=== PATIENT | male | born 1955 | race Caucasian/White ===

== ENCOUNTER 2025-02-08 16:31 | Inpatient (IN) ==
[2025-02-08] MEDS: SODIUM CHLORIDE 0.9% 1,000 ML IV ONE ×2 (16:58→18:16)
[2025-02-08 17:04] LABS: Hematocrit (blood only) 43.4 % (42.0-52.0); Hemoglobin 15.0 g/dl (14.0-18.0); Immature Granulocytes # (auto) 0.03 K/uL (0.01-0.20); Immature Granulocytes % (auto) 0.3 %; Mean Corpuscular Hemoglobin 27.9 pg (25.0-34.0); Mean Corpuscular Volume 80.8 fL (80.0-100.0); Platelet Count 179 K/uL (130-400); RDW Standard Deviation 41.8 fL (36.4-46.3); Red Blood Count 5.37 M/uL (4.70-6.10); White Blood Count 9.27 K/ul (4.8-10.8)
--- NOTE | 2025-02-08 17:17 | Emergency Department Note ---
Impression & Plan Ileus, Constipation, Acute urinary retention, BPH w urinary obs/LUTS, Renal insufficiency ED Provider Note NAME: HARRIS [id number] DIANA AGE: 69 SEX: M : 1955 ARRIVES VIA: Ambulance INFORMANT: Patient ED PROVIDER(S): Bola Sandoval MD CHIEF COMPLAINT: abdominal pain PLAN: Disposition: Admit MEDICAL DECISION MAKING: The patient is a pleasant 69-year-old gentleman, mcc inmate at [facility] who presents to the emergency department via EMS for evaluation of abdominal pain and distention that worsened this afternoon in the setting of being 1 day postop umbilical hernia repair where he was discharged yesterday evening. Patient reports he did eat yesterday and then ate again this morning without difficulty. However he reports he has not moved his bowels since his procedure. He reports he has not passed much gas. He reports he only urinated small amounts this morning. He has any fevers. He reports some nausea but denies vomiting. On evaluation patient is uncomfortable no acute distress, afebrile with heart in the 90s and blood pressure 190/100s in setting of discomfort and vital signs otherwise stable. He appears clinically dry. Abdomen is distended with generalized tenderness appropriate for postop status. There is mild redness around his surgical site without warmth or induration. I did perform a limited bedside bladder ultrasound which demonstrated evidence of urinary retention following void. Dubois catheter was placed and 500+cc did drain into the urinary catheter and patient di subsequent improvement in his distention and discomfort though still reporting pain. EKG without overt acute ischemia. CXR negative for acute cardiopulmonary process and KUB with nonobstructive bowel gas pattern and otherwise evidence of constipation per my personal preliminary review/interpretation. Suspected colonic ileus per radiology. WBC, H/H and platelets normal limits. Chemistry without metabolic acidosis. Creatinine 1.7, increased from creatinine of 1.4 in 2019 without more recent for comparison. LFTs unremarkable. High-sensitivity troponin 15.1, within normal limits. Lipase normal. Given evidence of constipation in setting of recent surgery without bowel movement patient was given a glycerin suppository and did subsequently pass gas and had additional reduction in his abdominal distention. However he was still reporting pain and so CT of the abdomen pelvis was obtained. Postoperative findings are seen in the area of his hernia surgery. Otherwise there is a large amount of gas and stool in the right colon which is dilated measuring 8.3 cm in diameter suggesting constipation. Prostate enlargement is noted. No other acute intra-abdominal process identified. Case was discussed with [facility] Ac general surgery PAC with Dr. Alvarenga, general surgery. Appreciate consultation and recommendations. Given the patient's continued discomfort recommends admission for supportive care. General surgery will admit the patient for further management. Further management per general surgery. Triage Nursing notes reviewed and agree them. Prior/external medical records reviewed Vital Signs: reviewed Differential diagnosis: Appendicitis, testicular torsion, infections, diverticulitis, UTI, obstruction, mesenteric ischemia, aortic pathology, inflammatory bowel disease, renal colic, PUD, pancreatitis, biliary pathology, hernia, volvulus, constipation, as well as other pathologies. ER treatment provided: See below. Diagnostics interpreted by me: ECG: Sinus rhythm with first-degree block, 95 bpm, no ectopy, redistribution of pressure, QTc 482, QRS 88. Cardiac Monitoring: An order for continuous cardiac monitoring was placed and demonstrated sinus rhythm with first-degree AV block, 95 bpm, no ectopy. Laboratory studies: See below Imaging studies: See below Consultation(s): Yovany Ac general surgery PAC with Dr. Alvarenga, general surgery. HPI: Per MDM. ROS: See above HPI for pertinent positives & negatives. A total of 10 systems reviewed and were otherwise negative. VITALS:See Below PHYSICAL EXAMINATION: GENERAL: Awake, alert, uncomfortable, in no distress HENT: Normocephalic, atraumatic. Oropharynx with dry mucous membranes and otherwise unremarkable. EYES: Normal conjunctiva. Sclera non-icteric. NECK: Supple. No nuchal rigidity. FROM. No JVD. RESPIRATORY: Clear to auscultation. CARDIAC: Regular rate, normal rhythm. Extremities warm and well perfused. Pulses equal. ABDOMEN: Abdomen is distended with generalized tenderness appropriate for postop status. There is mild redness around his surgical site without warmth or induration. MUSCULOSKELETAL: Chest examination reveals no tenderness. The back is symmetrical on inspection without obvious abnormality. There is no CVA tenderness to palpation. No joint edema. LOWER EXTREMITIES: Calves are equal size bilaterally and non-tender. No edema. No discoloration. NEURO: Normal sensorium. No sensory or motor deficits noted. SKIN: No rash or jaundice noted. Bola Sandoval MD Past Med/Surg History Problem List Ileus Umbilical hernia Encounter for pre-operative examination History of heart artery stent pt inmate at [facility], no further info. Myocardial infarction pt inmate at [facility], no further info Stomach problems Hyperkalemia Medical History Rash and other nonspecific skin eruption Low back pain, unspecified Tremor, unspecified Sciatica, unspecified side Tributary (branch) retinal vein occlusion, right eye, stable Squamous cell carcinoma of skin, unspecified Umbilical hernia Hx of myocardial infarction pt inmate at [facility], no further info. History of hyperkalemia Glaucoma Edema Dizziness vertigo - no further information - inmate Diarrhea Cortical age-related cataract, unspecified eye Constipation Central retinal vein occlusion of left eye Abnormal finding on lung imaging no further info. Sensorineural hearing loss, unspecified bilat. Vitamin D deficiency Preglaucoma Anemia Chronic kidney disease Personal history of sudden cardiac arrest no further info. GERD (gastroesophageal reflux disease) Diabetes mellitus, type 2 IDDM and oral meds Hyperlipidemia Hypertension Surgical History H/O umbilical hernia repair (02/07/25) Umbilical Hernia Open Repair (Not Applicable) - [facility], History of heart artery stent pt inmate at [facility], no further info. S/P left inguinal hernia repair Hx of cataract extraction bl Social History Smoking Status: Unknown if ever smoked Cigarettes Per Day: Unknown - [facility] inmate; Preferred Language: Moroccan Communication Ability Comment: Unknown - [facility] [employer] Required: No Beliefs That Will Affect Care: None Current Living Situation: Other Current Living Situation Comment: inmate at [facility] Feels Safe at Home: Yes Allergies Allergies Allergy/AdvReac Type Severity Reaction Status Date / Time nalbuphine Allergy Mild Verified 02/07/25 06:18 Penicillins Allergy Mild Verified 02/07/25 06:18 Home Meds Home Medications Medication Instructions Recorded Confirmed aspirin 81 mg tablet,delayed 81 mg PO DAILY 11/13/18 02/08/25 release (Fide Low Dose Aspirin) niacin 500 mg tablet,extended 500 mg PO DAILY 11/13/18 02/08/25 release rosuvastatin 40 mg tablet 40 mg PO DAILY 11/13/18 02/08/25 hydrochlorothiazide 25 mg tablet 12.5 mg PO DAILY 01/06/22 02/08/25 insulin NPH isoph U-100 human 100 See Rx Instructions .Route .COMPLEX 01/06/22 02/08/25 unit/mL subcutaneous suspension (Novolin N NPH U-100 Insulin isophane) insulin glargine-yfgn 100 unit/mL 20 unit subcut BID 01/06/22 02/08/25 subcutaneous solution (Semglee (insulin glargine-yfgn)) nortriptyline 10 mg capsule 10 mg PO QPM 01/06/22 02/08/25 dapagliflozin propanediol 10 mg 10 mg PO DAILY 11/23/24 02/08/25 tablet labetalol 300 mg tablet 300 mg PO BID 11/23/24 02/08/25 amlodipine 5 mg tablet 5 mg PO DAILY 01/27/25 02/08/25 cholecalciferol (vitamin D3) 25 125 mcg PO DAILY 01/27/25 02/08/25 mcg (1,000 unit) capsule glipizide 5 mg tablet 5 mg PO DAILY 01/27/25 02/08/25 nitroglycerin 0.4 mg sublingual 0.4 mg sublingual .Q 5 MIN PRN 01/27/25 02/08/25 tablet Chest Pain acetaminophen 500 mg tablet 1,000 mg PO TID PRN Pain 02/08/25 02/08/25 docusate sodium 100 mg capsule 100 mg PO BID 02/08/25 02/08/25 lisinopril 20 mg tablet 20 mg PO DAILY 02/08/25 02/08/25 sennosides 8.6 mg tablet (senna) 17.2 mg PO HS PRN Constipation 02/08/25 02/08/25 Results & Data (ED) Vital Signs Vital Signs - 24 hr 02/08/25 16:40 02/08/25 17:45 02/08/25 18:00 Temperature 37.3 C Temperature Source Oral Pulse Rate 96 H Pulse Rate [Finger] 90 87 Respiratory Rate 20 16 20 Respiratory Effort / Characteristics Respiratory Depth Respiratory Pattern Blood Pressure 196/104 H Blood Pressure [Left Arm] 178/108 H 195/95 H Blood Pressure Mean 134 Blood Pressure Mean [Left Arm] 131 128 Pulse Oximetry 98 97 98 Oxygen Delivery Method Room Air Room Air Room Air Sepsis Recent Fever Within 48 Hours No Sepsis New/Unexplained Change in Mental Status No Sepsis Action Taken by Nursing No Action Required 02/08/25 21:46 02/08/25 23:45 Temperature Temperature Source Pulse Rate Pulse Rate [Finger] 98 H 104 H Respiratory Rate 19 16 Respiratory Effort / Characteristics Non-Labored Spontaneous Respiratory Depth Normal Respiratory Pattern Regular Blood Pressure Blood Pressure [Left Arm] 187/102 H 178/99 H Blood Pressure Mean Blood Pressure Mean [Left Arm] 130 125 Pulse Oximetry 99 100 Oxygen Delivery Method Room Air Room Air Sepsis Recent Fever Within 48 Hours Sepsis New/Unexplained Change in Mental Status Sepsis Action Taken by Nursing Laboratory Data Attestation: I reviewed the patient's lab results. 02/08/25 16:43 02/08/25 16:43 Lab Results 02/08/25 02/08/25 Range/Units 16:43 17:04 WBC 9.27 (4.8-10.8) K/ul RBC 5.37 (4.70-6.10) M/uL Hgb 15.0 (14.0-18.0) g/dl Hct 43.4 (42.0-52.0) % MCV 80.8 (80.0-100.0) fL MCH 27.9 (25.0-34.0) pg MCHC 34.6 (32.0-36.0) g/dL RDW Std Deviation 41.8 (36.4-46.3) fL RDW Coeff of Facundo 14.3 (11.5-14.5) % Plt Count 179 (130-400) K/uL MPV 11.4 (9.4-12.4) fL Immature Gran % (Auto) 0.3 % Neut % (Auto) 73.3 % Lymph % (Auto) 13.1 % Bandera % (Auto) 11.5 % Eos % (Auto) 1.3 % Baso % (Auto) 0.5 % Neut # (Auto) 6.79 H (1.40-6.50) K/uL Lymph # (Auto) 1.21 (1.20-3.40) K/uL Bandera # (Auto) 1.07 H (0.11-0.59) K/uL Eos # (Auto) 0.12 (0.00-0.50) K/uL Baso # (Auto) 0.05 (0.00-0.20) K/uL Immature Gran # (Auto) 0.03 (0.01-0.20) K/uL PT 11.2 (9.0-12.0) Seconds INR 1.0 (0.9-1.1) Sodium 143 (136-145) mmol/L Potassium 3.3 L (3.5-5.1) mmol/L Chloride 105 (98-107) mmol/L Carbon Dioxide 27 (21-32) mmol/L Anion Gap 11 (3-11) BUN 32 H (6-23) mg/dl Creatinine 1.71 H (0.6-1.4) mg/dl Est Cr Clr Drug Dosing Not Reportable eGFR 42.53 BUN/Creatinine Ratio 18.7 (10-20) Glucose 76 (70-99(Fasting)) mg/dl Calcium 10.1 (8.6-10.3) mg/dl Magnesium 2.3 (1.7-2.4) mg/dl Total Bilirubin 0.8 (0.2-1.0) mg/dl Direct Bilirubin 0.1 (0-0.2) mg/dl AST 21 (13-39) U/L ALT 16 (7-52) U/L Alkaline Phosphatase 118 H (34-104) U/L Troponin I High Sens 15.1 (0-20) pg/ml Total Protein 8.6 H (6.0-8.3) gm/dl Albumin 4.4 (3.4-5.0) gm/dl Globulin 4.2 H (2.5-4.0) gm/dl Albumin/Globulin Ratio 1.0 (0.9-2) Lipase 32 (11-82) U/L Urine Color Yellow Urine Appearance Clear (Clear) Urine pH 7.0 (4.5-7.5) Ur Specific Bennett 1.015 (1.000-1.030) Urine Protein 3+ H (Negative) Urine Glucose (UA) 3+ H (Negative) Urine Ketones Negative (Negative) Urine Blood 2+ H (Negative) Urine Nitrite Negative (Negative) Urine Bilirubin Negative (Negative) Urine Urobilinogen Negative (Negative) Ur Leukocyte Esterase Negative (Negative) Urine WBC (Auto) 0-5 (0-5) /hpf Urine RBC (Auto) 11-20 H (0-2) /hpf U Hyaline Cast (Auto) 0-2 (0-2) /lpf U Epithel Cells (Auto) 0-2 (0-2) /hpf Urine Bacteria (Auto) None Seen (None Seen) Urine Comment Administered Medications Discontinued Medications Glycerin (Glycerin Adult 12 Supp/Box Supp) 1 supp PA NOW ONE Stop: 02/08/25 18:05 Last Admin: 02/08/25 18:34 Dose: 1 supp Documented By: RUBY Sodium Chloride (Nss) 1,000 mls @ 999 mls/hr IV .Q1H1M ONE Stop: 02/08/25 17:33 Last Infusion: 02/08/25 18:15 Dose: Infused Documented By: Admin: 02/08/25 16:58 Dose: 999 mls/hr Documented By: QGV Acetaminophen (Ofirmev) 1,000 mg in 100 mls @ 400 mls/hr IV NOW STA Stop: 02/08/25 17:29 Last Infusion: 02/08/25 17:33 Dose: Infused Documented By: Admin: 02/08/25 17:19 Dose: 400 mls/hr Documented By: RUBY Sodium Chloride (Nss) 1,000 mls @ 999 mls/hr IV .Q1H1M ONE Stop: 02/08/25 19:05 Last Infusion: 02/08/25 19:11 Dose: Infused Documented By: Admin: 02/08/25 18:16 Dose: 999 mls/hr Documented By: ANN Ioversol (Optiray 320 100ml) 92 ml IV ONCE ONE Stop: 02/08/25 21:41 Last Admin: 02/08/25 21:41 Dose: 92 ml Documented By: HEIDY Ondansetron HCl (Ondansetron Inj 2 Mg/Ml 2 Ml Vial) 4 mg IV NOW STA Stop: 02/08/25 23:38 Last Admin: 02/08/25 23:42 Dose: 4 mg Documented By: ANDIE Imaging Data Radiologist's Impression: Chest X-Ray 02/08/25 16:34 Technique: A frontal view of the chest was obtained Comparison is made to the prior examination dated 11/13/2018 Findings: There are no confluent pulmonary infiltrates. The heart size is within normal limits. No pleural effusion or pneumothorax is seen. There is no definite pulmonary nodule. No fracture is noted. No foreign body is seen Impression: No active disease Electronically signed by Magan Pelletier 02-08-2025 7:50 PM KUB X-Ray 02/08/25 17:15 Clinical history: Pain 2 views of the abdomen were obtained Findings: There is severe constipation. There are prominent air-filled loops of colon the could be due to ileus. There is no definite sign of small bowel obstruction. No renal or ureteral calculi are seen. No foreign body is evident. No osseous abnormality is seen. A Dubois catheter is present Impression: Constipation and suspected colonic ileus Electronically signed by Magan Pelletier 02-08-2025 7:50 PM Abdomen/Pelvis CT 02/08/25 20:33 Exam(s): CT ABDOMEN + PELVIS With Contrast IV Amt: 92ml EXAM: CT Abdomen and Pelvis With Intravenous Contrast CLINICAL HISTORY: Reason for exam: abd pain 1 day postop hernia repair. TECHNIQUE: Axial computed tomography images of the abdomen and pelvis with intravenous contrast. CTDI is 17.42 mGy and DLP is 980.43 mGy-cm. Automated exposure control was utilized for the study. A dose lowering technique was utilized adhering to the principles of ALARA. CONTRAST: Patient received 92ml of IV contrast COMPARISON: 09/01/2015. FINDINGS: Lung bases: Unremarkable. No mass. No consolidation. Heart: Borderline cardiomegaly with moderate coronary calcification and trace pericardial effusion. ABDOMEN: Liver: Unremarkable. No mass. Gallbladder and bile ducts: Unremarkable. No calcified stones. No ductal dilation. Pancreas: Unremarkable. No mass. No ductal dilation. Spleen: Unremarkable. No splenomegaly. Adrenals: Unremarkable. No mass. Kidneys and ureters: Unremarkable. No solid mass. No hydronephrosis. Stomach and bowel: There is a large amount of gas and stool in the right colon which is dilated measuring up to 8.3 cm in diameter suggesting constipation. The appendix is normal. There is diverticulosis of the sigmoid colon without evidence of acute diverticulitis. No other acute inflammatory process is seen in the abdomen or pelvis. PELVIS: Appendix: See above. Bladder: The urinary bladder is decompressed by a Dubois catheter. Reproductive: The prostate gland is mildly enlarged measuring 5.8 x 4. 9 x 4.8 cm 71.5 ml. ABDOMEN and PELVIS: Intraperitoneal space: Unremarkable. No free air. No significant fluid collection. Bones/joints: Mild degenerative changes throughout the spine. No acute fracture or subluxation. Soft tissues: There is a 3-4 cm area of subcutaneous edema in the previous location of the umbilical hernia. No discrete abscess or recurrence is seen. Consider cellulitis. Vasculature: The abdominal aorta and iliac vessels are heavily calcified but nondilated. There is no aneurysm. Lymph nodes: Unremarkable. No enlarged lymph nodes. IMPRESSION: 1. There is a 3-4 cm area of subcutaneous edema in the previous location of the umbilical hernia. No discrete abscess or recurrence is seen. Consider cellulitis. 2. There is a large amount of gas and stool in the right colon which is dilated measuring up to 8.3 cm in diameter suggesting constipation. The appendix is normal. There is diverticulosis of the sigmoid colon without evidence of acute diverticulitis. No other acute inflammatory process is seen in the abdomen or pelvis. Electronically signed by: Dario Hou MD 02/08/25 23:15 PM Discharge Plan Visit Data Chief Complaint: Abdominal Pain Stated Complaint: AB PAIN ED Provider: Bola Sandoval Prescriptions Prescriptions: No Action dapagliflozin propanediol 10 mg tablet 10 mg PO DAILY labetalol 300 mg tablet 300 mg PO BID aspirin [Fide Low Dose Aspirin] 81 mg Tablet,Delayed Release (Dr/Ec) 81 mg PO DAILY rosuvastatin 40 mg Tablet 40 mg PO DAILY niacin 500 mg Tablet Extended Release 500 mg PO DAILY nortriptyline 10 mg Capsule 10 mg PO QPM Rx Instructions: crush Novolin N NPH U-100 Insulin 100 unit/mL Suspension See Rx Instructions .ROUTE .COMPLEX Rx Instructions: . hydrochlorothiazide 25 mg Tablet 12.5 mg PO DAILY insulin glargine-yfgn [Semglee(insulin glargine-yfgn)] 100 unit/mL Solution 20 unit SUBCUT BID lisinopril 20 mg Tablet 20 mg PO DAILY sennosides [senna] 8.6 mg Tablet 17.2 mg PO HS PRN (Reason: Constipation) Rx Instructions: hold for loose stools acetaminophen 500 mg Tablet 1,000 mg PO TID PRN (Reason: Pain) docusate sodium 100 mg Capsule 100 mg PO BID Rx Instructions: hold for loose stools amlodipine 5 mg Tablet 5 mg PO DAILY glipizide 5 mg Tablet 5 mg PO DAILY nitroglycerin 0.4 mg Tablet, Sublingual 0.4 mg sublingual .Q 5 MIN MDD up to 3 doses PRN (Reason: Chest Pain) Patient Comments: Take 1 tab SL every 5 min for chest pain. May repeat up to 3 doses. cholecalciferol (vitamin D3) 25 mcg (1,000 unit) Capsule 125 mcg PO DAILY Discharge Problem:
[2025-02-08] MEDS: ACETAMINOPHEN 1,000 MG/100 ML VIAL IV STA (17:19)
[2025-02-08 17:24] LABS: Alanine Aminotransferase 16 U/L (7-52); Albumin Globulin Ratio 1.0 (0.9-2); Albumin Level 4.4 gm/dl (3.4-5.0); Alkaline Phosphatase 118 U/L (34-104); Anion Gap 11 (3-11); Bilirubin,Total 0.8 mg/dl (0.2-1.0); Blood Urea Nitrogen 32 mg/dl (6-23); Calcium 10.1 mg/dl (8.6-10.3); Carbon Dioxide 27 mmol/L (21-32); Chloride 105 mmol/L (98-107); Globulin 4.2 gm/dl (2.5-4.0); Glucose 76 mg/dl (70-99(Fasting)); Lipase 32 U/L (11-82); Magnesium 2.3 mg/dl (1.7-2.4); Potassium 3.3 mmol/L (3.5-5.1); Sodium 143 mmol/L (136-145); Total Protein 8.6 gm/dl (6.0-8.3)
[2025-02-08 17:28] LABS: Appearance Urine Clear (Clear); Bacteria Urine Automated None Seen (None Seen); Cast Urine Automated 0-2 /lpf (0-2); Epithelial Cell Urine Auto 0-2 /hpf (0-2); Glucose Urine UA 3+ (Negative); WBC Urine Automated 0-5 /hpf (0-5)
[2025-02-08 17:49] LABS: INR 1.0 (0.9-1.1); Prothrombin Time 11.2 Seconds (9.0-12.0)
[2025-02-08] MEDS: GLYCERIN ADULT 12 SUPP/BOX SUPP PR ONE (18:34)
--- NOTE | 2025-02-08 19:51 | XRay Report ---
Technique: A frontal view of the chest was obtained Comparison is made to the prior examination dated 11/13/2018 Findings: There are no confluent pulmonary infiltrates. The heart size is within normal limits. No pleural effusion or pneumothorax is seen. There is no definite pulmonary nodule. No fracture is noted. No foreign body is seen Impression: No active disease Electronically signed by Magan Pelletier 02-08-2025 7:50 PM
--- NOTE | 2025-02-08 19:51 | XRay Report ---
Clinical history: Pain 2 views of the abdomen were obtained Findings: There is severe constipation. There are prominent air-filled loops of colon the could be due to ileus. There is no definite sign of small bowel obstruction. No renal or ureteral calculi are seen. No foreign body is evident. No osseous abnormality is seen. A Dubois catheter is present Impression: Constipation and suspected colonic ileus Electronically signed by Magan Pelletier 02-08-2025 7:50 PM
[2025-02-08] MEDS: OPTIRAY 320 100ml IV ONE (21:41)
--- NOTE | 2025-02-08 23:16 | CT Scan Report ---
Exam(s): CT ABDOMEN + PELVIS With Contrast IV Amt: 92ml EXAM: CT Abdomen and Pelvis With Intravenous Contrast CLINICAL HISTORY: Reason for exam: abd pain 1 day postop hernia repair. TECHNIQUE: Axial computed tomography images of the abdomen and pelvis with intravenous contrast. CTDI is 17.42 mGy and DLP is 980.43 mGy-cm. Automated exposure control was utilized for the study. A dose lowering technique was utilized adhering to the principles of ALARA. CONTRAST: Patient received 92ml of IV contrast COMPARISON: 09/01/2015. FINDINGS: Lung bases: Unremarkable. No mass. No consolidation. Heart: Borderline cardiomegaly with moderate coronary calcification and trace pericardial effusion. ABDOMEN: Liver: Unremarkable. No mass. Gallbladder and bile ducts: Unremarkable. No calcified stones. No ductal dilation. Pancreas: Unremarkable. No mass. No ductal dilation. Spleen: Unremarkable. No splenomegaly. Adrenals: Unremarkable. No mass. Kidneys and ureters: Unremarkable. No solid mass. No hydronephrosis. Stomach and bowel: There is a large amount of gas and stool in the right colon which is dilated measuring up to 8.3 cm in diameter suggesting constipation. The appendix is normal. There is diverticulosis of the sigmoid colon without evidence of acute diverticulitis. No other acute inflammatory process is seen in the abdomen or pelvis. PELVIS: Appendix: See above. Bladder: The urinary bladder is decompressed by a Dubois catheter. Reproductive: The prostate gland is mildly enlarged measuring 5.8 x 4. 9 x 4.8 cm 71.5 ml. ABDOMEN and PELVIS: Intraperitoneal space: Unremarkable. No free air. No significant fluid collection. Bones/joints: Mild degenerative changes throughout the spine. No acute fracture or subluxation. Soft tissues: There is a 3-4 cm area of subcutaneous edema in the previous location of the umbilical hernia. No discrete abscess or recurrence is seen. Consider cellulitis. Vasculature: The abdominal aorta and iliac vessels are heavily calcified but nondilated. There is no aneurysm. Lymph nodes: Unremarkable. No enlarged lymph nodes. IMPRESSION: 1. There is a 3-4 cm area of subcutaneous edema in the previous location of the umbilical hernia. No discrete abscess or recurrence is seen. Consider cellulitis. 2. There is a large amount of gas and stool in the right colon which is dilated measuring up to 8.3 cm in diameter suggesting constipation. The appendix is normal. There is diverticulosis of the sigmoid colon without evidence of acute diverticulitis. No other acute inflammatory process is seen in the abdomen or pelvis. Electronically signed by: Dario Hou MD 02/08/25 23:15 PM
[2025-02-08] MEDS: ONDANSETRON INJ 2 MG/ML 2 ML VIAL IV STA (23:42)
--- NOTE | 2025-02-09 00:08 | History & Physical Report ---
Date of Service February 09, 2025 Assessment & Plan (1) Ileus: Plan: I discussed with the treating emergency room physician and I feel the patient should be admitted to the hospital with surgical recommendations are as follows: Based on the patient's physical exam findings, recent surgery, and imaging findings, I suspect the patient is suffering from an ileus Patient to be hydrated IV fluids, with potassium supplementation as he has a slight hypokalemia Antiemetics will be provided Analgesics will be provided As the patient is experiencing some nausea without vomiting feel we should keep the patient n.p.o. for the present time Will attempt modalities such as enemas and suppositories rectally to promote some stimulation which will hopefully help resolve some of his abdominal discomfort If the patient has any emesis that ensues, consideration may be given to placing an NG tube. Labs will be repeated in the morning I do not feel the patient is suffering from any type of postoperative infection as I feel his incision has the expected appearance and his postoperative course Patient is an insulin-dependent diabetic and will list the help of the hospitalist service in managing this condition Patient also has urinary retention for which a Dubois catheter has been placed. Will keep this in place for bladder rest and initiate Flomax. A voiding trial can be performed at a later date (this can be done as an inpatient or outpatient) Ambulation should be encouraged Due to the patient's recent surgery we will utilize only SCDs for DVT prevention Addendum (6:15 AM) Patient revisited at bedside. The patient notes that he is passing flatus and since he has been passing flatus his abdominal pain has improved somewhat. I did discuss with the nurses at bedside the patient has been tachycardic with heart rate anywhere from 100 to 120 throughout the night. In addition, the patient's blood pressure has been elevated with his most recent reading at 171/103. The nurse attending to the patient has reached out to the hospitalist service regarding these parameters. An EKG was obtained at bedside this morning that showed sinus tachycardia with heart rate just over 100 bpm. There did not appear to be changes indicative of acute ischemia. I did discuss with the medical service personally and we discussed the BP meds the patient will be receiving this morning. At time of admission was elected to hold his hydrochlorothiazide and lisinopril due to some elevation of his creatinine above baseline. The patient does take labetalol which is due to resume this morning. After discussion with the medical service, it is decided to administer the patient's labetalol this morning and see how his blood pressure trends. History of Present Illness Chief Complaint: Abdominal pain Primary Care Provider: DAVE Le This is a 69-year-old male who presented to the emergency department secondary to abdominal discomfort. On 02/07/2025 the patient underwent an open umbilical hernia repair by Dr. Nghia Crawford of [facility] of general surgery. Dr. Crawford's operative note was reviewed and the patient was noted to have a small umbilical hernia defect and mesh was not utilized in this repairhe did do a primary fascial closure. Patient was discharged back to [facility] where [facility] the day of his procedure. The patient presented to the emergency department the evening of 02/08/2025 secondary to abdominal pain and difficulty urinating. Patient notes that since his surgery he has only been able to void very small amounts with a weak urine stream. He notes that he has never had this issue before. He denies any dysuria or hematuria. Patient also reports that he was able to eat breakfast the morning of 02/08/2025 but since that time he has had persistent nausea without vomiting. He also notes that [facility] he has not been able to pass gas or move his bowels since his surgery. He notes that his abdomen is somewhat distended and he has a considerable amount of pain primarily located in the periumbilical region near his hernia surgery site. He does not report any modifying factors to his pain prior to arrival and he denies any radiation. He denies any fevers, shakes, or chills. Since arrival to the hospital this evening the patient has had labs and imaging which I independently reviewed. The chest x-ray showed no evidence of pneumonia. I did not appreciate any free air under the diaphragm. A KUB was performed that showed findings consistent with a colonic ileus as well as constipation. This was followed up with a CT scan of the abdomen and pelvis. This showed that there was no significant free intraperitoneal air or intraperitoneal free fluid. There is an area of subcutaneous edema in in the area of previous umbilical hernia with no abscess or recurrence of the hernia. There is a large amount of gas and stool in the right colon. The right colon appeared dilated measuring up to approximately 8.3 cm which was concerning for constipation. There is no other inflammatory process noted in the abdomen or pelvis. Labs included CBC white blood cell count, hemoglobin, hematocrit, and platelet count were normal. Coagulation studies were normal. Chemistry profile showed sodium is 143 with a potassium of 3.3. BUN and creatinine were 32 and 1.7. Urinalysis was not indicative of infection. Since arrival to the emergency department the patient has had 2 L of intravenous fluids given. He also had some intravenous acetaminophen and was given a glycerin suppository. He does note that he passed a small amount of flatus with the glycerin suppository but has yet to move his bowels. In addition, the patient has had a Dubois catheter placed and the patient did note some slight symptomatic relief with decompression of his bladder. At the time my interview the patient was in no distress but did have considerable abdominal discomfort Allergies Allergy/AdvReac Type Severity Reaction Status Date / Time nalbuphine Allergy Mild Verified 02/07/25 06:18 Penicillins Allergy Mild Verified 02/07/25 06:18 Home Medications Medication Instructions Recorded Confirmed Type aspirin 81 mg tablet,delayed 81 mg PO DAILY 11/13/18 02/08/25 History release (Fide Low Dose Aspirin) niacin 500 mg tablet,extended 500 mg PO DAILY 11/13/18 02/08/25 History release rosuvastatin 40 mg tablet 40 mg PO DAILY 11/13/18 02/08/25 History hydrochlorothiazide 25 mg tablet 12.5 mg PO DAILY 01/06/22 02/08/25 History insulin NPH isoph U-100 human 100 See Rx Instructions .Route .COMPLEX 01/06/22 02/08/25 History unit/mL subcutaneous suspension (Novolin N NPH U-100 Insulin isophane) insulin glargine-yfgn 100 unit/mL 20 unit subcut BID 01/06/22 02/08/25 History subcutaneous solution (Semglee (insulin glargine-yfgn)) nortriptyline 10 mg capsule 10 mg PO QPM 01/06/22 02/08/25 History dapagliflozin propanediol 10 mg 10 mg PO DAILY 11/23/24 02/08/25 History tablet labetalol 300 mg tablet 300 mg PO BID 11/23/24 02/08/25 History amlodipine 5 mg tablet 5 mg PO DAILY 01/27/25 02/08/25 History cholecalciferol (vitamin D3) 25 125 mcg PO DAILY 01/27/25 02/08/25 History mcg (1,000 unit) capsule glipizide 5 mg tablet 5 mg PO DAILY 01/27/25 02/08/25 History nitroglycerin 0.4 mg sublingual 0.4 mg sublingual .Q 5 MIN PRN 01/27/25 02/08/25 History tablet Chest Pain acetaminophen 500 mg tablet 1,000 mg PO TID PRN Pain 02/08/25 02/08/25 History docusate sodium 100 mg capsule 100 mg PO BID 02/08/25 02/08/25 History lisinopril 20 mg tablet 20 mg PO DAILY 02/08/25 02/08/25 History sennosides 8.6 mg tablet (senna) 17.2 mg PO HS PRN Constipation 02/08/25 02/08/25 History Past Med/Surg History Problem List (Updated 02/09/25 @ 01:26 by Prabha Alejandre PA-C) Diabetes mellitus, type 2 IDDM and oral meds Hypokalemia Renal insufficiency (Acute) BPH w urinary obs/LUTS (Acute) Acute urinary retention (Acute) Constipation (Acute) Ileus (Acute) Ileus Umbilical hernia Encounter for pre-operative examination History of heart artery stent pt inmate at [facility], no further info. Myocardial infarction pt inmate at [facility], no further info Stomach problems Hyperkalemia Medical History Rash and other nonspecific skin eruption Low back pain, unspecified Tremor, unspecified Sciatica, unspecified side Tributary (branch) retinal vein occlusion, right eye, stable Squamous cell carcinoma of skin, unspecified Umbilical hernia Hx of myocardial infarction pt inmate at [facility], no further info. History of hyperkalemia Glaucoma Edema Dizziness vertigo - no further information - inmate Diarrhea Cortical age-related cataract, unspecified eye Constipation Central retinal vein occlusion of left eye Abnormal finding on lung imaging no further info. Sensorineural hearing loss, unspecified bilat. Vitamin D deficiency Preglaucoma Anemia Chronic kidney disease Personal history of sudden cardiac arrest no further info. GERD (gastroesophageal reflux disease) Diabetes mellitus, type 2 IDDM and oral meds Hyperlipidemia Hypertension Surgical History H/O umbilical hernia repair (02/07/25) Umbilical Hernia Open Repair (Not Applicable) - Hebert Crawford, DO History of heart artery stent pt inmate at [facility], no further info. S/P left inguinal hernia repair Hx of cataract extraction bl Social History Smoking Status: Unknown if ever smoked Cigarettes Per Day: Unknown - [facility] inmate; Preferred Language: Mohawk Communication Ability Comment: Unknown - [facility] inmate Pediatric Physical Therapy Assistant Required: No Beliefs That Will Affect Care: None Current Living Situation: Other Current Living Situation Comment: inmate at [facility] Feels Safe at Home: Yes Review of Systems Review of Systems: All systems reviewed & are unremarkable except as noted in HPI & below Physical Exam Constitutional: well developed and well nourished; + uncomfortable Eyes: no conjunctival abnormality ENMT: Ears: no hearing impairment and no external ear abnormality Mouth: no oropharynx abnormality Neck: trachea midline Respiratory: normal respiratory effort; no respiratory distress and no labored breathing Cardiovascular: Rate/Rhythm: regular rate and regular rhythm Gastrointestinal (Abdomen): The patient's abdomen is noted to have moderate distention. There is tympanic to percussion. Patient did have pain with palpation and generalized fashion but this appear to be greatest in the periumbilical region. In the periumbilical region the patient had a curvilinear incision consistent with his recent umbilical hernia repair. There is a small amount of surrounding erythema/bruising along the incision. I did not appreciate any fluctuance or fluid collections. Musculoskeletal: No calf tenderness Skin: no rashes Neurologic: moves all extremities Psychiatric: A+Ox3, euthymic affect Results & Data Results & Data Vital Signs (Past 12 Hours) Vital Signs Temp Pulse Pulse Resp BP BP Pulse Ox 02/08/25 23:45 104 H 16 178/99 H 100 02/08/25 21:46 98 H 19 187/102 H 99 02/08/25 18:00 87 20 195/95 H 98 02/08/25 17:45 90 16 178/108 H 97 02/08/25 16:40 37.3 C 96 H 20 196/104 H 98 O2 Del Method 02/08/25 23:45 Room Air 02/08/25 21:46 Room Air 02/08/25 18:00 Room Air 02/08/25 17:45 Room Air 02/08/25 16:40 Room Air PG Care Time/CCT Total # of Minutes Spent Total Time Spent with Patient: Total time spent is greater than 50% in coordination of care (as documented) at patient's floor/unit and/or counseling patient: Coding Level of Care Code None Diagnoses Ileus K56.7
[2025-02-09] MEDS: NSS + 20MEQ KCL 20 MEQ/1,000 ML BAG IV SCH (01:04)
--- NOTE | 2025-02-09 01:12 | Hospitalist Consultation ---
Date of Consultation February 09, 2025 Assessment & Plan (1) Ileus: (2) Acute urinary retention: (3) Renal insufficiency: (4) Hypokalemia: (5) Diabetes mellitus, type 2: Plan Patient is a 69-year-old male with a past medical history including stage III CKD, AK, sudden cardiac arrest, type II DM, GERD, HTN, HLD. The hospitalist team was consulted for diabetes management after the patient was admitted to the general surgery team for an ileus after hernia repair surgery 02/07. Patient also in acute urinary retention and with creatinine of 1.7, K+ 3.3. #ileusnoted on KUB, AP CT showed constipation. With nausea, no vomiting; will defer NG tube at this time Management per general surgery team IVF per surgery team Pain control per surgery team N.p.o. #Acute urinary retention/renal insufficiency/hypokalemiapatient noted to be in acute urinary retention, given Dubois catheter in the ED. Creatinine increased from 1.4-1.7 (unclear as to patient's baseline however he reports history of stage III CKD). K+ 3.3, mag 2.3. IVF per surgery teamNSS with 20 mEq KCl at 100 mL/hour Catheter care daily - hold HCTZ - flomax 0.4mg PO daily ordered Trend BMP and magnesium #Type II DM - no recent A1c on file, will order. hold dapagliflozin and glipizide - On glargine 20U twice daily; will reduce to 12U twice daily with n.p.o. status - SSI ordered #HTNBP elevated to 186/108 at time of admission likely secondary to significant pain with ileus. Pain control per general surgery team Continue amlodipine and labetalol - holding lisinopril with possible surgical management #mental health - continue nortriptyline VTE ppx: SCDs Dispo: admit to med surg with general surgery team as primary Supervising Physician Co-Signing Physician Notes Attending addendum: I have physically seen this patient, have supervised the KYLAH's activities, and agree with the H&P unless as otherwise noted. Assessment and Plan: The patient is a 69-year-old male with past medical history including CKD stage III, AK, sudden cardiac arrest,type II, GERD, hypertension and hyperlipidemia. Not in a hospital service has been consulted by general surgery for diabetes management. The patient is admitted to the general surgery service for ileus that occurred after hernia repair surgery on 02/07. Patient is also being admitted with acute urinary retention and creatinine of 1.7 and potassium 3.3 Ileus- Postoperatively Management per general surgery team IV fluids and pain control per surgery team Diabetes mellitus type 2- Hold dapagliflozin and glipizide Reduce glargine from 20 units subcu twice daily to 12 units SQ twice daily while n.p.o. Place on Accu-Cheks with NovoLog SSI Hypertension- Blood pressure 186/108 at time of admission patient is having significant pain from ileus Pain control per primary team Continue amlodipine and labetalol Hold lisinopril [facility] hospitalist service will follow along during hospital stay History of Present Illness Reason for Consultation: Dm management Requesting Physician: Silvano Ac History of Present Illness Patient is a 69-year-old male with a past medical history including stage III CKD, AK, sudden cardiac arrest, type II DM, GERD, HTN, HLD. The hospitalist team was consulted for diabetes management after the patient was admitted to the general surgery team for an ileus after hernia repair surgery 02/07. Patient also in acute urinary retention and with creatinine of 1.7, K+ 3.3. Patient seen at bedside with [facility] guards present. He stated he had an umbilical hernia repair 02/07 and then 02/08 developed severe abdominal pain that was 10/10. He had Tylenol 1G IV in the ED and is currently complaining of 20/10 pain. BP is elevated 186/108, HR 98 likely secondary to pain. Nursing to reach out to general surgery team regarding pain control. Patient notes nausea without vomiting. He did not pass any gas or have a bowel movement after the procedure. He reportedly did pass some gas after a glycerin suppository in the ED. Stated he has not had much of an appetite over the past 24 hours. He is unsure if he got his evening medications last night however did get his morning blood pressure medications. He wishes to be full code. Allergies Allergy/AdvReac Type Severity Reaction Status Date / Time nalbuphine Allergy Mild Verified 02/07/25 06:18 Penicillins Allergy Mild Verified 02/07/25 06:18 Home Medications Medication Instructions Recorded Confirmed Type aspirin 81 mg tablet,delayed 81 mg PO DAILY 11/13/18 02/08/25 History release (Fide Low Dose Aspirin) niacin 500 mg tablet,extended 500 mg PO DAILY 11/13/18 02/08/25 History release rosuvastatin 40 mg tablet 40 mg PO DAILY 11/13/18 02/08/25 History hydrochlorothiazide 25 mg tablet 12.5 mg PO DAILY 01/06/22 02/08/25 History insulin NPH isoph U-100 human 100 See Rx Instructions .Route .COMPLEX 01/06/22 02/08/25 History unit/mL subcutaneous suspension (Novolin N NPH U-100 Insulin isophane) insulin glargine-yfgn 100 unit/mL 20 unit subcut BID 01/06/22 02/08/25 History subcutaneous solution (Semglee (insulin glargine-yfgn)) nortriptyline 10 mg capsule 10 mg PO QPM 01/06/22 02/08/25 History dapagliflozin propanediol 10 mg 10 mg PO DAILY 11/23/24 02/08/25 History tablet labetalol 300 mg tablet 300 mg PO BID 11/23/24 02/08/25 History amlodipine 5 mg tablet 5 mg PO DAILY 01/27/25 02/08/25 History cholecalciferol (vitamin D3) 25 125 mcg PO DAILY 01/27/25 02/08/25 History mcg (1,000 unit) capsule glipizide 5 mg tablet 5 mg PO DAILY 01/27/25 02/08/25 History nitroglycerin 0.4 mg sublingual 0.4 mg sublingual .Q 5 MIN PRN 01/27/25 02/08/25 History tablet Chest Pain acetaminophen 500 mg tablet 1,000 mg PO TID PRN Pain 02/08/25 02/08/25 History docusate sodium 100 mg capsule 100 mg PO BID 02/08/25 02/08/25 History lisinopril 20 mg tablet 20 mg PO DAILY 02/08/25 02/08/25 History sennosides 8.6 mg tablet (senna) 17.2 mg PO HS PRN Constipation 02/08/25 02/08/25 History Patient History Medical History Rash and other nonspecific skin eruption Low back pain, unspecified Tremor, unspecified Sciatica, unspecified side Tributary (branch) retinal vein occlusion, right eye, stable Squamous cell carcinoma of skin, unspecified Umbilical hernia Hx of myocardial infarction pt inmate at [facility], no further info. History of hyperkalemia Glaucoma Edema Dizziness vertigo - no further information - inmate Diarrhea Cortical age-related cataract, unspecified eye Constipation Central retinal vein occlusion of left eye Abnormal finding on lung imaging no further info. Sensorineural hearing loss, unspecified bilat. Vitamin D deficiency Preglaucoma Anemia Chronic kidney disease Personal history of sudden cardiac arrest no further info. GERD (gastroesophageal reflux disease) Diabetes mellitus, type 2 IDDM and oral meds Hyperlipidemia Hypertension Surgical History H/O umbilical hernia repair (02/07/25) Umbilical Hernia Open Repair (Not Applicable) - Hebert Crawford DO History of heart artery stent pt inmate at [facility], no further info. S/P left inguinal hernia repair Hx of cataract extraction bl Social History Smoking Status: Former smoker Cigarettes Per Day: Unknown - [facility] inmate; Hx Alcohol Use: No Hx Substance Use: No Preferred Language: Egyptian Communication Ability: Effective Communication Ability Comment: Unknown - [facility] inmate [employer] Required: No Beliefs That Will Affect Care: None Current Living Situation: Other Current Living Situation Comment: inmate Feels Safe at Home: Yes Assistive Devices: None Review of Systems Review of Systems: see HPI Physical Exam Physical Exam: The patient is awake, alert and oriented 3, well developed and well nourished, normocephalic and atraumatic, in no acute distress. Non-toxic appearing. HEENT- EOMI, mucous membranes moist. Hearing grossly intact. Heart-normal S1 and S2. No murmurs, rubs or gallops. Lungs-clear bilaterally, no respiratory distress, no accessory muscle use. Abdomen-normal bowel sounds. Moderate distention. Extremities- no clubbing, cyanosis, or edema. Rheumatologic-normal range of motion. Psychiatric-normal affect. Results & Data Results & Data Vital Signs (Past 12 Hours) Vital Signs Temp Pulse Pulse Resp BP BP Pulse Ox 02/08/25 23:45 104 H 16 178/99 H 100 02/08/25 21:46 98 H 19 187/102 H 99 02/08/25 18:00 87 20 195/95 H 98 02/08/25 17:45 90 16 178/108 H 97 02/08/25 16:40 37.3 C 96 H 20 196/104 H 98 O2 Del Method 02/08/25 23:45 Room Air 02/08/25 21:46 Room Air 02/08/25 18:00 Room Air 02/08/25 17:45 Room Air 02/08/25 16:40 Room Air Laboratory Results Abnormal lab results 02/08/25 02/08/25 Range/Units 16:43 17:04 Neut # (Auto) 6.79 H (1.40-6.50) K/uL [place] # (Auto) 1.07 H (0.11-0.59) K/uL Potassium 3.3 L (3.5-5.1) mmol/L BUN 32 H (6-23) mg/dl Creatinine 1.71 H (0.6-1.4) mg/dl Alkaline Phosphatase 118 H (34-104) U/L Total Protein 8.6 H (6.0-8.3) gm/dl Globulin 4.2 H (2.5-4.0) gm/dl Urine Protein 3+ H (Negative) Urine Glucose (UA) 3+ H (Negative) Urine Blood 2+ H (Negative) Urine RBC (Auto) 11-20 H (0-2) /hpf Diagnostic Findings Reviewed AP CT, KUB, CXR Medications Administered ED2L NSS bolus, Tylenol 1G IV, glycerin suppository General Surgery teamNSS with 20 mEq KCl at 100 mL/hour ECG Additional Comments: NSR with first-degree AV block Rate 95 QTc 482 PG Care Time/CCT Total # of Minutes Spent Total Time Spent with Patient: Total time spent is greater than 50% in coordination of care (as documented) at patient's floor/unit and/or counseling patient: Coding Level of Care Code 12480 IN/OBS CONSULT LVL 5,80M Diagnoses Ileus K56.7 Acute urinary retention R33.8 Renal insufficiency N28.9 Hypokalemia E87.6 Diabetes mellitus, type 2 E11.9
[2025-02-09] MEDS: HYDROmorphone INJ 0.5 MG/0.5 ML SYR IV PRN (01:26)
[2025-02-09] MEDS ORDERED: ONDANSETRON INJ 2 MG/ML 2 ML VIAL IV PRN (01:48)
[2025-02-09] MEDS ORDERED: SOD PHOSPHATE/SOD BIPHOSPHATE ENEMA 132 ML BTL PR PRN (01:48)
[2025-02-09] MEDS ORDERED: CARBOHYDRATES FOR HYPOGLYCEMIA PO PRN (01:48)
[2025-02-09] MEDS ORDERED: DEXTROSE 50% 50 ML SYRINGE IV PRN (01:48)
[2025-02-09] MEDS ORDERED: NITROGLYCERIN SL 0.4 MG/TAB TAB SL PRN (01:48)
[2025-02-09] MEDS ORDERED: GLUCOSE 40% GEL 15 GM TUBE PO PRN (01:48)
[2025-02-09] MEDS ORDERED: GLUCAGON FOR INJ 1 MG VIAL SQ PRN (01:48)
[2025-02-09] MEDS ORDERED: GLUCOSE 10 TAB/TUBE PO PRN (01:48)
[2025-02-09] MEDS: INSULIN ASPART PER UNIT CHARGE SC SCH ×2 (05:45→20:52)
[2025-02-09] MEDS: ACETAMINOPHEN 1,000 MG/100 ML VIAL IV PRN (05:48)
[2025-02-09] MEDS: LACTATED RINGER'S 500 ML IV ONE (05:55)
[2025-02-09 06:34] LABS: Hematocrit (blood only) 48.0 % (42.0-52.0); Hemoglobin 15.7 g/dl (14.0-18.0); Immature Granulocytes # (auto) 0.02 K/uL (0.01-0.20); Immature Granulocytes % (auto) 0.2 %; Mean Corpuscular Hemoglobin 27.0 pg (25.0-34.0); Mean Corpuscular Volume 82.6 fL (80.0-100.0); Platelet Count 163 K/uL (130-400); RDW Standard Deviation 43.8 fL (36.4-46.3); Red Blood Count 5.81 M/uL (4.70-6.10); White Blood Count 9.13 K/ul (4.8-10.8)
[2025-02-09 06:50] LABS: Anion Gap 17.0 (3-11); Blood Urea Nitrogen 26.0 mg/dl (6-23); Calcium 9.2 mg/dl (8.6-10.3); Carbon Dioxide 19.0 mmol/L (21-32); Chloride 106.0 mmol/L (98-107); Creatinine Clr Calc Pharmacy 47.5 ml/min; Glucose 153.0 mg/dl (70-99(Fasting)); Potassium 3.5 mmol/L (3.5-5.1); Sodium 142.0 mmol/L (136-145)
[2025-02-09 07:23] LABS: Hemoglobin A1C 6.3 % (4.5-5.6)
[2025-02-09] MEDS: LANTUS PER UNIT CHARGE SQ SCH (08:23)
[2025-02-09] MEDS: TAMSULOSIN HCL 0.4 MG CAP PO SCH (08:28)
[2025-02-09] MEDS: LABETALOL HCL 300 MG TAB PO SCH (08:28)
--- NOTE | 2025-02-09 09:15 | Surgery Progress Note ---
Date of Service February 09, 2025 Assessment & Plan (1) H/O umbilical hernia repair: Plan: We are going to start him on some Augmentin for his erythema Can advance his diet as tolerated as there is no signs of obstruction and I think he is just having some constipation issues perioperatively Will give him a dose of MiraLAX daily until his bowels returned to normal Will leave the Dubois catheter in today for decompression, he has already been started on Flomax Hospitalist team is on consult for help with his other medical comorbidities If he continues to improve he can likely be discharged tomorrow Admission and Anticipated Discharge Date Admission Date: February 09, 2025 Subjective Patient seen and examined. States his abdominal pain is improved. Still has some tenderness at the surgical site. Is passing a lot of flatus without BM. Stated prior to arrival he had a lot of nausea without emesis. Physical Exam Constitutional: WD/WN, vitals as above Eyes: PERRL, conjunctivae normal, anicteric sclerae Respiratory: normal respiratory effort, lungs clear to auscultation Cardiovascular: RRR, no murmur, no edema Gastrointestinal (Abdomen): Inspection/Auscultation: + abdomen distended (Mild); + abdomen abnormal to inspection Percussion/Palpation: + abdomen tender (Appropriately at the umbilicus) and abdomen soft; no guarding and no hernia Mild blanching erythema surrounding the umbilicus, no drainage Results & Data Vital Signs (Past 12 Hours) Vital Signs Temp Pulse Resp BP Pulse Ox O2 Del Method O2 Flow Rate 02/09/25 07:37 Room Air 02/09/25 07:37 36.3 C L 112 H 16 163/94 H 99 Room Air 02/09/25 05:00 Room Air 02/09/25 05:00 115 H 16 179/101 H 98 Room Air 02/09/25 04:15 36.8 C 120 H 20 171/103 H 94 Nasal Cannula 2 02/09/25 02:05 109 H 22 181/112 H 98 Room Air 02/09/25 01:00 98 H 16 186/108 H 99 Room Air 02/08/25 23:45 104 H 16 178/99 H 100 Room Air 02/08/25 21:46 98 H 19 187/102 H 99 Room Air PG Care Time/CCT Total # of Minutes Spent Total Time Spent with Patient: Total time spent is greater than 50% in coordination of care (as documented) at patient's floor/unit and/or counseling patient: Coding Level of Care Code 67079 Post Operative Follow-Up Diagnoses H/O umbilical hernia repair Z98.890; Z87.19
[2025-02-09] MEDS: POLYETHYLENE (MIRALAX) 17 GM PACK PO STA (13:28)
[2025-02-09] MEDS: SULFAMETHOXAZOLE/TRIMETHOPRIM DS 800/160MG TAB PO SCH (13:28)
[2025-02-09] MEDS: POLYETHYLENE (MIRALAX) 17 GM PACK PO SCH (13:30)
--- NOTE | 2025-02-09 14:08 | Hospitalist Progress Note ---
Date of Service February 09, 2025 Assessment & Plan (1) Ileus: (2) Acute urinary retention: (3) Renal insufficiency: (4) Hypokalemia: (5) Diabetes mellitus, type 2: Plan Patient is a 69-year-old male with a past medical history including stage III CKD, [place], sudden cardiac arrest, type II DM, GERD, HTN, HLD. The hospitalist team was consulted for diabetes management after the patient was admitted to the general surgery team for an ileus after hernia repair surgery 02/07. Patient also in acute urinary retention and with creatinine of 1.7, K+ 3.3. #Ileus Noted on KUB, AP CT showed constipation; not suggestive of SBO With nausea, no vomiting; NG tube deferred on admission A/P CT revealed large amount of gas and stool in the right colon measuring up to 8.3 cm suggestive of constipation Fluids, pain control, DVT PPx per general surgery team Advance to clear liquid diet on 02/09 as there is no obstruction Advance diet as tolerated #Recent umbilical hernia repair With Dr. Crawford on 02/07 No leukocytosis Bactrim 1 tablet BID for residual erythema #Constipation MiraLAX daily Colace twice daily #Acute urinary retention | renal insufficiency | hypokalemia (resolveD) Patient noted to be in acute urinary retention, given Dubois catheter in the ED. Creatinine increased from 1.4-1.7 (unclear as to patient's baseline however he reports history of stage III CKD). K+ 3.3, mag 2.3. Continue IV Hold HCTZ Catheter care daily Flomax 0.4 mg p.o. daily #Type II DM A1c 6.3% on 02/09/2025 Hold dapagliflozin and glipizide On glargine 20U twice daily; will reduce to 10u BID in the setting of decreased p.o. status SSI ordered BSG ACHS Adjust regimen as needed #HTN Continue amlodipine and labetalol Holding lisinopril with possible surgical management #Mental health Continue nortriptyline VTE ppx: SCDs Thank you for allowing us to participate in the care of this patient. Please reach out with any questions or concerns; we will continue to follow. Admission and Anticipated Discharge Date Admission Date: February 09, 2025 Supervising Physician Co-Signing Physician Notes Attending Attestation: Chart reviewed, care plan d/w SHANTE Paulson. I agree w/ the lucas components of his documentation. Piol Hansen MD Subjective Mr. Abraham no abdominal pain this time. He reports that he will occasionally develop slight "abdominal pressure", which is alleviated whenever he passes gas. He is still passing gas frequently today. No bowel movements yet today. He reports his last bowel movement was on Tuesday 02/06; he then had surgery on Wednesday 02/07. Overall, reports that he feels fairly asymptomatic at this time. He was nauseous yesterday, but reports relief after receiving Zofran. No prior history of SBO. Patient is not on supplemental oxygen at baseline. ROS: Patient endorses nausea (resolved), and intermittent abdominal pressure. Patient denies fever, chills, night sweats, chest pain, SOB, cough, abdominal pain, vomiting, blood in the urine or stool prior to surgery, or numbness or tingling going down the legs. Review of Systems Review of Systems: See HPI above Physical Exam Physical Exam: General: no acute distress; correctional officers at bedside; non-toxic appearing; cooperative; SpO2 99% on RA HEENT: normocephalic, atraumatic; PERRLA; vision and hearing intact Neck: supple; trachea midline Skin: warm, dry without signs of tenting; no cyanosis; no rashes, bruising, lesions, or erythema noted CV: chest wall NTP; RRR; S1/S2 normal; no murmurs/rubs/gallops; pulses intact and symmetric at radial, DP, and PT Lungs: no acute respiratory distress; symmetrical chest wall expansion; clear breath sounds across all lung jacobson w/o adventitious sounds; no wheezing ABD: Soft, NTP in all 4 quadrants; BS present; no rebound/guarding; mild distention; no rashes or bruising appreciated on the abdomen or flanks bilaterally MSK: no tics or fasciculations; no edema noted in the LEs b/l, nonerythematous Neuro: A&Ox3; normal mood and affect; fluent speech; sensation intact and symmetric in the LEs b/l Results & Data Results & Data Vital Signs (Past 12 Hours) Vital Signs Temp Pulse Resp BP Pulse Ox O2 Del Method O2 Flow Rate 02/09/25 12:00 78 16 125/67 99 Room Air 09/25/25 07:37 Room Air 02/09/25 07:37 36.3 C L 112 H 16 163/94 H 99 Room Air 02/09/25 05:00 Room Air 02/09/25 05:00 115 H 16 179/101 H 98 Room Air 02/09/25 04:15 36.8 C 120 H 20 171/103 H 94 Nasal Cannula 2 PG Care Time/CCT Total # of Minutes Spent Total Time Spent with Patient: Total time spent is greater than 50% in coordination of care (as documented) at patient's floor/unit and/or counseling patient: Coding [place] [address] SUB INP/OBS CARE 06/11MIN Patient Type Established Medical Decision Making Low Complexity Diagnoses Ileus K56.7 Acute urinary retention R33.8 Renal insufficiency N28.9 Hypokalemia E87.6 Diabetes mellitus, type 2 E11.9
[2025-02-09] MEDS ORDERED: AMOXICILLIN/CLAVULANATE 875 MG TAB PO SCH (17:00)
[2025-02-09] MEDS: Nursing to Pharmacy Communication SCH (18:19)
[2025-02-09] MEDS: NORTRIPTYLINE HCL 10 MG CAP PO SCH (20:53)
--- NOTE | 2025-02-10 08:33 | Surgery Progress Note ---
Date of Service February 10, 2025 Assessment & Plan (1) H/O umbilical hernia repair: Plan: clinically improving will remove dillard and see if he can urinate. advance diet. possible d/c later today or tomorrow. (2) Acute urinary retention: (3) Constipation: Admission and Anticipated Discharge Date Admission Date: February 09, 2025 Subjective pt seen. feeling better. +flatus. less distension. no n/v. denies pain. Physical Exam Physical Exam: alert. nad abd: soft. minimal distension. some mild erythema...expected swelling. no drainage. Results & Data Vital Signs (Past 12 Hours) Vital Signs Temp Pulse Resp BP Pulse Ox O2 Del Method O2 Flow Rate 02/10/25 06:56 36.6 C 71 18 155/69 H 94 Nasal Cannula 2.0 02/09/25 22:00 36.3 C L 72 18 163/85 H 96 Room Air PG Care Time/CCT Total # of Minutes Spent Total Time Spent with Patient: Total time spent is greater than 50% in coordination of care (as documented) at patient's floor/unit and/or counseling patient: Coding Level of Care Code 16564 SUB INP/OBS CARE 06/11MIN Diagnoses H/O umbilical hernia repair Z98.890; Z87.19 Acute urinary retention R33.8 Constipation K59.00
--- NOTE | 2025-02-10 14:33 | XRay Report ---
KUB HISTORY: SBO r/o COMPARISON STUDY: 02/08/2025 FINDINGS: There is mild retained stool. There is mild gaseous distention of the colon measuring up to 8 cm diameter. No small bowel distention seen. No gross free air. IMPRESSION: Mild gaseous distention of the colon. ACT 112: Negative or not required by law. The above report was generated using voice recognition software. It may contain grammatical, syntax o r spelling errors. Electronically signed by: Kamari Barrett M.D. 02/10/2025 2:32 PM
--- NOTE | 2025-02-10 17:50 | Hospitalist Progress Note ---
"Date of Service February 10, 2025 Assessment & Plan (1) Ileus: (2) Acute urinary retention: (3) Renal insufficiency: (4) Hypokalemia: (5) Diabetes mellitus, type 2: Plan Patient is a 69-year-old male with a past medical history including stage III CKD, [place], sudden cardiac arrest, type II DM, GERD, HTN, HLD. The hospitalist team was consulted for diabetes management after the patient was admitted to the general surgery team for an ileus after hernia repair surgery 02/07. Patient also in acute urinary retention and with creatinine of 1.7, K+ 3.3. #Ileus Noted on KUB, AP CT showed constipation; not suggestive of SBO With nausea, no vomiting; NG tube deferred on admission A/P CT revealed large amount of gas and stool in the right colon measuring up to 8.3 cm suggestive of constipation Fluids, pain control, DVT PPx per general surgery team Advance to clear liquid diet on 02/09 However, patient endured a setback on 02/10 Light meal of Mongolian water ice and Jell-O exacerbated the pain Repeat KUB ordered; mild gaseous distention of the colon without SBO appreciated; no gross free air Okay to remain on current diet, however patient develops nausea or vomiting, recommend NG tube #Recent umbilical hernia repair With Dr. Crawford on 02/07 No leukocytosis Bactrim 1 tablet BID for residual erythema Patient will need 5 total days of antibiotics upon discharge #Constipation MiraLAX daily Colace twice daily #Acute urinary retention | renal insufficiency | hypokalemia (resolved) Patient noted to be in acute urinary retention, given Dubois catheter in the ED. Creatinine increased from 1.4-1.7 (unclear as to patient's baseline however he reports history of stage III CKD). K+ 3.3, mag 2.3. Continue IV Hold HCTZ Catheter care daily Flomax 0.4 mg p.o. daily #Type II DM A1c 6.3% on 02/09/2025 Hold dapagliflozin and glipizide On glargine 20U twice daily; will reduce to 10u BID in the setting of decreased p.o. status SSI ordered BSG ACHS Adjust regimen as needed #HTN Continue amlodipine and labetalol Holding lisinopril with possible surgical management #Mental health Continue nortriptyline VTE ppx: SCDs Thank you for allowing us to participate in the care of this patient. Please reach out with any questions or concerns; we will continue to follow. Admission and Anticipated Discharge Date Admission Date: February 09, 2025 Supervising Physician Co-Signing Physician Notes Attending Attestation: Chart reviewed, care plan d/w SHANTE Paulson. I agree w/ the lucas components of his documentation. Pilo Hansen MD Subjective Mr. Abraham reports he is feeling worse after eating lunch today (Mongolian water ice and Jell-O). This induced pain in the right lower abdomen approximately 10 minutes after eating. She is now feeling bloated and tender in the right lower abdomen. No BMs yet. Patient again denies history of bowel obstructions. ROS: Patient endorses abdominal pain, tenderness, and bloating. Patient denies chest pain, SOB, nausea, or vomiting. Review of Systems Review of Systems: See HPI above Physical Exam Physical Exam: General: no acute distress; correctional officers at bedside; non-toxic appearing; cooperative; SpO2 95% on RA HEENT: normocephalic, atraumatic; PERRLA; vision and hearing intact Neck: supple; trachea midline Skin: warm, dry without signs of tenting; no cyanosis; no rashes, bruising, lesions, or erythema noted CV: chest wall NTP; RRR; S1/S2 normal; no murmurs/rubs/gallops; pulses intact and symmetric at radial, DP, and PT Lungs: no acute respiratory distress; symmetrical chest wall expansion; clear breath sounds across all lung jacobson w/o adventitious sounds; no wheezing ABD: Soft, TTP in the right lower quadrant wrapping around the right flank; mildly TTP in all other quadrants; abdomen is distended; no rashes or bruising appreciated on the abdomen or flanks bilaterally MSK: no tics or fasciculations; no edema noted in the LEs b/l, nonerythematous Neuro: A&Ox3; normal mood and affect; fluent speech; sensation intact and symmetric in the LEs b/l Results & Data Results & Data Vital Signs (Past 12 Hours) Vital Signs Temp Pulse Resp BP Pulse Ox O2 Del Method O2 Flow Rate 02/10/25 15:15 36.7 C 64 16 143/71 H 95 Room Air 02/10/25 07:25 Nasal Cannula 2 02/10/25 06:56 36.6 C 71 18 155/69 H 94 Nasal Cannula 2.0 PG Care Time/CCT Total # of Minutes Spent Total Time Spent with Patient: Total time spent is greater than 50% in coordination of care (as documented) at patient's floor/unit and/or counseling patient: Coding [place] [address] SUB INP/OBS CARE 2/35MIN Patient Type Established Medical Decision Making Moderate Complexity Diagnoses Ileus K56.7 Acute urinary retention R33.8 Renal insufficiency N28.9 Hypokalemia E87.6 Diabetes mellitus, type 2 E11.9"
--- NOTE | 2025-02-11 05:18 | Surgery Progress Note ---
Date of Service February 11, 2025 Assessment & Plan (1) H/O umbilical hernia repair: Plan: Status postumbilical hernia repair on 02/07/2025 (postoperative day #4) Clinical improvement has been noted since admission Patient is tolerating full liquid dietconsideration can be given to advancing diet further if his a.m. labs are unremarkable and he continues to have improvement of abdominal pain The patient has been placed on Bactrim due to concern for cellulitis of surgical incision and this can be continued for several days at time of discharge The patient continues to have difficulty voiding and has been initiated on Flomax. Will have the nurses check a postvoid residual via bladder scan after his next void and if patient has an excess of 200 cc of urine he will require Dubois catheter placement. He can be discharged with Dubois catheter in place with an outpatient voiding trial but the need for this is yet to be determined Encourage ambulation Check a.m. labs when available Patient remains hospitalized consideration can be given to initiating Lovenox or subcutaneous heparin for DVT prevention Admission and Anticipated Discharge Date Admission Date: February 09, 2025 Supervising Physician Co-Signing Physician Notes I have seen and examined this pt this am. I agree with this plan Subjective Patient is resting comfortably in bed. He notes that his abdominal pain that was present at time of admission has improved. He is tolerating diet advancement to full liquids thus far. He has not had a bowel movement since his surgery but he is passing flatus which improves his abdominal pain. The patient does report he is continues to have difficulty voiding. He notes when he has the urge to void he is only able to void small amounts. Physical Exam Gastrointestinal (Abdomen): Abdomen is soft with minimal distention. Patient has expected discomfort with palpation near his surgical incision. There is a small amount of erythema from his surgical incision but it is noted to have an incision that is clean, dry, and intact. Results & Data Vital Signs (Past 12 Hours) Vital Signs Temp Pulse Resp BP BP Pulse Ox O2 Del Method 02/10/25 23:08 36.8 C 62 16 135/75 95 Room Air 02/10/25 21:07 Room Air 02/10/25 21:04 36.5 C 73 16 163/81 H 95 Room Air PG Care Time/CCT Total # of Minutes Spent Total Time Spent with Patient: Total time spent is greater than 50% in coordination of care (as documented) at patient's floor/unit and/or counseling patient: Coding Level of Care Code 35588 Post Operative Follow-Up Diagnoses H/O umbilical hernia repair Z98.890; Z87.19
--- NOTE | 2025-02-11 08:27 | Electrocardiogram Report ---
Test Reason : Blood Pressure : */* mmHG Vent. Rate : 95 BPM Atrial Rate : 95 BPM P-R Int : 228 ms QRS Dur : 88 ms QT Int : 384 ms P-R-T Axes : 36 -1 12 degrees QTcB Int : 482 ms Sinus rhythm with 1st degree A-V block Prolonged QT Nonspecific T wave abnormality When compared with ECG of 13-Nov-2018 12:03, Vent. rate has increased by 41 bpm QT has lengthened Confirmed by Braeden Domínguez ([id number]) on 02/11/2025 8:26:44 AM Referred By: [facility] Confirmed By: Braeden Domínguez
--- NOTE | 2025-02-11 08:29 | Electrocardiogram Report ---
Test Reason : Blood Pressure : */* mmHG Vent. Rate : 105 BPM Atrial Rate : 105 BPM P-R Int : 200 ms QRS Dur : 90 ms QT Int : 364 ms P-R-T Axes : 19 12 27 degrees QTcB Int : 482 ms Sinus tachycardia T wave abnormality, consider anterior ischemia Prolonged QT Abnormal ECG When compared with ECG of 08-Feb-2025 16:37, QT has lengthened T wave inversion now evident in Anterior leads Confirmed by Braeden Domínguez ([id number]) on 02/11/2025 8:29:02 AM Referred By: [facility] Confirmed By: Braeden Domínguez
[2025-02-11 09:05] LABS: Anion Gap 7.0 (3-11); Blood Urea Nitrogen 27.0 mg/dl (6-23); Calcium 8.9 mg/dl (8.6-10.3); Carbon Dioxide 25.0 mmol/L (21-32); Chloride 110.0 mmol/L (98-107); Creatinine Clr Calc Pharmacy 43.5 ml/min; Glucose 110.0 mg/dl (70-99(Fasting)); Potassium 3.8 mmol/L (3.5-5.1); Sodium 142.0 mmol/L (136-145)
--- NOTE | 2025-02-11 12:33 | Hospitalist Progress Note ---
"Date of Service February 11, 2025 Assessment & Plan (1) Ileus: (2) Acute urinary retention: (3) Renal insufficiency: (4) Hypokalemia: (5) Diabetes mellitus, type 2: Plan Patient is a 69-year-old male with a past medical history including stage III CKD, [place], sudden cardiac arrest, type II DM, GERD, HTN, HLD. The hospitalist team was consulted for diabetes management after the patient was admitted to the general surgery team for an ileus after hernia repair surgery 02/07. Patient also in acute urinary retention and with creatinine of 1.7, K+ 3.3 on arrival. #Ileus Fluids, pain control, and DVT PPx per primary team A/P CT revealed large amount of gas and stool in the right colon measuring up to 8.3 cm suggestive of constipation Tolerating clear liquid diet on 02/11 -> advance to full liquid for lunch, and trial of solids as tolerated Repeat KUB on 02/10 did not reveal acute SBO; no gross free air Okay to remain on current diet, however patient develops nausea or vomiting, recommend NG tube Encouraged ambulation when possible #Recent umbilical hernia repair With Dr. Crawford on 02/07 No leukocytosis Bactrim 1 tablet BID for residual erythema Patient will need 5 total days of antibiotics upon discharge #Constipation MiraLAX daily Colace twice daily #Acute urinary retention | renal insufficiency | hypokalemia (resolved) Patient noted to be in acute urinary retention, given Dubois catheter in the ED. Creatinine increased from 1.4-1.7 (unclear as to patient's baseline however he reports history of stage III CKD). K+ 3.3, mag 2.3. Continue IVF PRN Hold HCTZ Catheter care daily Flomax 0.4 mg p.o. daily #Type II DM A1c 6.3% on 02/09/2025 Hold dapagliflozin and glipizide On glargine 20U twice daily; will reduce to 10u BID in the setting of decreased p.o. status SSI ordered BSG ACHS Adjust regimen as needed #HTN Continue amlodipine and labetalol Holding lisinopril with possible surgical management #Mental health Continue nortriptyline VTE ppx: SCDs, encourage ambulation where possible; given prolonged hospitalization, if no plans for repeat surgery, recommend adding on either heparin 5000u SQ q12h or lovenox 40mg SQ q24h Thank you for allowing us to participate in the care of this patient. Please reach out with any questions or concerns; we will continue to follow. Admission and Anticipated Discharge Date Admission Date: February 09, 2025 Supervising Physician Co-Signing Physician Notes Attending Attestation: Chart reviewed, care plan d/w SHANTE Paulson. I agree w/ the lucas components of his documentation. Pilo Hansen MD Subjective Mr. Abraham is doing marginally better today when compared to yesterday. He was able to have some chicken broth this morning, as well as some milk and did not note abdominal bloating or nausea. Clear liquids did not exacerbate pain, and he feels open to advancing his diet today. Patient has still not had any BMs since being in the hospital, but does report he is passing gas this morning. ROS: Patient denies fevers overnight, chest pain, SOB, abdominal pain/bloating with food, nausea, vomiting, or bowel movements. Review of Systems Review of Systems: See HPI above Physical Exam Physical Exam: General: no acute distress; 2 correctional officers at bedside; non-toxic appearing; cooperative; SpO2 96% on RA HEENT: normocephalic, atraumatic; PERRLA; vision and hearing intact Neck: supple; trachea midline Skin: warm, dry without signs of tenting; no cyanosis; no rashes, bruising, lesi ons, or erythema noted CV: chest wall NTP; RRR; S1/S2 normal; no murmurs/rubs/gallops; pulses intact and symmetric at radial, DP, and PT Lungs: no acute respiratory distress; symmetrical chest wall expansion; clear breath sounds across all lung jacobson w/o adventitious sounds; no wheezing ABD: Soft, NTP in all 4 quadrant; abdomen is mildly distended; no rashes or bruising appreciated on the abdomen or flanks bilaterally MSK: no tics or fasciculations; no edema noted in the LEs b/l, nonerythematous Neuro: A&Ox3; normal mood and affect; fluent speech; sensation intact and symmetric in the LEs b/l Results & Data Results & Data Vital Signs (Past 12 Hours) Vital Signs Temp Pulse Resp BP Pulse Ox O2 Del Method 02/11/25 06:56 36.4 C L 72 16 156/75 H 96 Room Air PG Care Time/CCT Total # of Minutes Spent Total Time Spent with Patient: Total time spent is greater than 50% in coordination of care (as documented) at patient's floor/unit and/or counseling patient: Coding [place] [address] SUB INP/OBS CARE 1/25MIN Patient Type Established Medical Decision Making Low Complexity Diagnoses Ileus K56.7 Acute urinary retention R33.8 Renal insufficiency N28.9 Hypokalemia E87.6 Diabetes mellitus, type 2 E11.9"
--- NOTE | 2025-02-12 05:10 | Surgery Progress Note ---
Date of Service February 12, 2025 Assessment & Plan (1) H/O umbilical hernia repair: Plan: Status postumbilical hernia repair on 02/07/2025 (postoperative day #5) Clinical improvement continues since admission Patient is tolerating full liquid dietconsideration can be given to advancing diet further if clinical improvement continues The patient has been placed on Bactrim due to concern for cellulitis of surgical incision and this can be continued for several days at time of discharge Due to noted voiding difficulties the patient was initiated on Flomax. Despite this modality he continued to have high postvoid residuals requiring Dubois catheter placement. Would recommend maintaining Dubois catheter for 5 to 7 days at which time a voiding trial can be performed. (This can be performed as an outpatient, and can be performed at the [facility] if the staff there is agreeable) Continue to encourage ambulation Check a.m. labs when available Consider adding Lovenox for DVT prevention if patient remains hospitalized Admission and Anticipated Discharge Date Admission Date: February 09, 2025 Supervising Physician Co-Signing Physician Notes I have seen and examined this patient. He is without complaints. He continues to tolerate his diet and may be advanced to low fiber today There is no significant cellulitis at the umbilical area. Mostly old bruising remaining He may be discharged from a surgical standpoint on oral abx to complete a 7-10 day course. Continue warm compresses to the area Follow up with Dr. Crawford in the office in 2-3 weeks Subjective Patient is currently resting comfortably in bed. He notes he achieved some symptomatic relief of his urinary symptoms noted yesterday with placement of Dubois catheter. Concerning his abdomen he denies any nausea or vomiting and is tolerating full liquids. He says he is passing flatus but has not had a bowel movement since admission. Physical Exam Gastrointestinal (Abdomen): Abdomen is noted to have minimal distention. (This is improved from what was noted at time of admission). Surgical incision and periumbilical region is clean, dry, intact. There is less erythema than what was noted previously. His abdomen is much softer and less painful to palpation. Results & Data Vital Signs (Past 12 Hours) Vital Signs Temp Pulse Resp BP BP Pulse Ox O2 Del Method 02/11/25 23:01 36.5 C 51 L 14 137/73 94 Room Air 02/11/25 20:23 62 02/11/25 20:22 60 163/85 H PG Care Time/CCT Total # of Minutes Spent Total Time Spent with Patient: Total time spent is greater than 50% in coordination of care (as documented) at patient's floor/unit and/or counseling patient: Coding Level of Care Code 37168 Post Operative Follow-Up Diagnoses H/O umbilical hernia repair Z98.890; Z87.19
[2025-02-12 08:05] VITALS: RESP 16
[2025-02-12 12:31] LABS: Hematocrit (blood only) 38.2 % (42.0-52.0); Hemoglobin 12.9 g/dl (14.0-18.0); Mean Corpuscular Hemoglobin 28.2 pg (25.0-34.0); Mean Corpuscular Volume 83.6 fL (80.0-100.0); Platelet Count 147 K/uL (130-400); RDW Standard Deviation 44.6 fL (36.4-46.3); Red Blood Count 4.57 M/uL (4.70-6.10); White Blood Count 5.61 K/ul (4.8-10.8)
--- NOTE | 2025-02-12 12:40 | Hospitalist Progress Note ---
Date of Service February 12, 2025 Assessment & Plan (1) Ileus: (2) Acute urinary retention: (3) Renal insufficiency: (4) Hypokalemia: (5) Diabetes mellitus, type 2: Plan Patient is a 69-year-old male with a past medical history including stage III CKD, [place], sudden cardiac arrest, type II DM, GERD, HTN, HLD. The hospitalist team was consulted for diabetes management after the patient was admitted to the general surgery team for an ileus after hernia repair surgery 02/07. Patient also in acute urinary retention and with creatinine of 1.7, K+ 3.3 on arrival. #Ileus Fluids, pain control, and DVT PPx per primary team Encouraged ambulation when possible A/P CT revealed large amount of gas and stool in the right colon measuring up to 8.3 cm suggestive of constipation Repeat KUB on 02/10 did not reveal acute SBO; no gross free air Patient reports BMs x 2 on 02/12 He has now been advanced to a solid diet and is tolerating it well without recurrence of abdominal pressure/pain Feel that the patient is safe for discharge from a medical standpoint Discharge disposition per primary team #Recent umbilical hernia repair | abdominal cellulitis With Dr. Crawford on 02/07 No leukocytosis on day of discharge 02/12 Continue Bactrim 1 tablet BID for residual erythema/abdominal cellulitis (started on 02/09) Will plan to prescribe Bactrim 1 tablet BID through 02/15 to complete full 7-day course #Constipation (resolved) MiraLAX daily Colace twice daily #Acute urinary retention Patient noted to be in acute urinary retention on arrival and a Dubois catheter was placed in the ED Creatinine increased from 1.4 -> 1.7 (unclear baseline; he reports history of stage III CKD) Creatinine improved with Dubois placement and IVF Attempted Dubois catheter removal on 02/11, but patient exhibited difficulty to void spontaneously Dubois catheter reinserted Suspect mild AUGUST in the setting of obstructive etiology (?BPH) Continue Flomax 0.4 mg p.o. daily on discharge x 7-day Recommend maintaining Dubois catheter for the next 5 to 7 days before initiating repeat voiding trial #Type II DM A1c 6.3% on 02/09/2025 Hold dapagliflozin and glipizide On glargine 20U twice daily; will reduce to 10u BID in the setting of decreased p.o. status SSI ordered BSG ACHS Adjust regimen as needed Plan to restart home regimen on discharge #HTN Continue amlodipine and labetalol Okay to restart lisinopril on discharge #Mental health Continue nortriptyline VTE ppx: SCDs, encourage ambulation where possible Attempted to call [facility] twice on 02/12 hoping to speak with [facility] and set up transitional care, but was unable to reach anyone Disposition: Safe for discharge from a medical standpoint Per General Surgery request, will send in additional antibiotics Thank you for allowing us to participate in the care of this patient. Please reach out with any questions or concerns. Admission and Anticipated Discharge Date Admission Date: February 09, 2025 Supervising Physician Co-Signing Physician Notes Attending Attestation: Chart reviewed, care plan d/w SHANTE Paulson. I agree w/ the lucas components of his documentation. Pilo Hansen MD Subjective Mr. Abraham is happy to report that he had 2 bowel movements today at around 1213 100. They were both liquidy in consistency. Dark brown. No BRB in stool. His stomach is feeling much better today. He was able to tolerate solids for lunch, without exacerbation of stomach pain. In regard to his decreased urinary production, patient tried urinating yesterday without the Dubois catheter, but was unable to void independently. He was able to get out "a little bit" with straining, but feels like his prostate is "clamping up". No burning with urination. No history of UTIs. ROS: Patient denies fever, chills, night sweats, chest pain, SOB, cough, abdominal pain, N/V, BRB in urine or stool, burning with urination, or numbness or tingling in the arms or legs. Review of Systems Review of Systems: See HPI above Physical Exam Physical Exam: General: no acute distress; 2 correctional officers at bedside; non-toxic appearing; cooperative; SpO2 96% on RA HEENT: normocephalic, atraumatic; PERRLA; vision and hearing intact Neck: supple; trachea midline Skin: warm, dry without signs of tenting; no cyanosis; no rashes, bruising, lesions, or erythema noted CV: chest wall NTP; RRR; S1/S2 normal; no murmurs/rubs/gallops; pulses intact and symmetric at radial, DP, and PT Lungs: no acute respiratory distress; symmetrical chest wall expansion; clear breath sounds across all lung jacobson w/o adventitious sounds; no wheezing ABD: Soft, NTP in all 4 quadrant; flanks are NTP; no rashes or bruising apprecia xavier on the abdomen or flanks bilaterally MSK: no tics or fasciculations; no edema noted in the LEs b/l, nonerythematous Neuro: A&Ox3; normal mood and affect; fluent speech; sensation intact and symmet michelle in the LEs b/l Results & Data Results & Data Vital Signs (Past 12 Hours) Vital Signs Temp Pulse Resp BP Pulse Ox O2 Del Method 02/12/25 07:50 Room Air 02/12/25 07:06 36.6 C 55 L 16 184/76 H 96 Room Air PG Care Time/CCT Total # of Minutes Spent Total Time Spent with Patient: Total time spent is greater than 50% in coordination of care (as documented) at patient's floor/unit and/or counseling patient: [place] [address] SUB INP/OBS CARE 3/50MIN Patient Type Established Medical Decision Making High Complexity Diagnoses Ileus K56.7 Acute urinary retention R33.8 Renal insufficiency N28.9 Hypokalemia E87.6 Diabetes mellitus, type 2 E11.9
[2025-02-12 12:41] LABS: Anion Gap 4.0 (3-11); Blood Urea Nitrogen 23.0 mg/dl (6-23); Calcium 8.8 mg/dl (8.6-10.3); Carbon Dioxide 26.0 mmol/L (21-32); Chloride 108.0 mmol/L (98-107); Creatinine Clr Calc Pharmacy 45.2 ml/min; Glucose 104.0 mg/dl (70-99(Fasting)); Potassium 4.0 mmol/L (3.5-5.1); Sodium 138.0 mmol/L (136-145)
[2025-02-12 12:53] LABS: Partial Thromboplastin Time 29 Seconds (21-31)
[2025-02-12 20:03] VITALS: O2SAT 96
[2025-02-13 07:46] VITALS: BP 171/79; PULSE 58; TEMP 98.4
--- NOTE | 2025-02-13 08:13 | Surgery Progress Note ---
<Statement entered by Cristopher Webber, - 02/13/25 09:40> I have seen and examined Jose this am. He has no complaints and is tolerating solid food without issues. I have advised warm compresses, complete abx course at discharge. Plan for D/C today with Dillard catheter in place for removal at [facility]. Will need replaced if the patient does not void after 8 hours of removal then follow up with urology. Follow up with Dr. Crawford in 2-3 weeks. Date of Service February 13, 2025 Assessment & Plan (1) H/O umbilical hernia repair: Plan: Pt is s/p umbilical hernia repair here with abdominal pain/constipation that is resolved He is tolerating a diet, no n/v. He is having + bowel function Is on bactrim x 7 days for some umbilical incision redness, improved He will be discharged on flomax and a dillard catheter (for urinary retention) that can be removed in the snf in 5-7 days Can use warm compresses intermittently to umbilical incision for symptom relief He is stable for discharge May f/u in the office with dr. crawford as previously planned Admission and Anticipated Discharge Date Admission Date: February 09, 2025 Subjective Patient is feeling well. He is tolerating a diet, no n/v. He is having + bowel function. Physical Exam Physical Exam: awake/alert, no distress Gastrointestinal (Abdomen): Inspection/Auscultation: + abdominal surgical incision (c/d/i with dermabond, some bruising noted) Percussion/Palpation: + abdomen tender (some discomfort over umbilical region) and abdomen soft Results & Data Vital Signs (Past 12 Hours) Vital Signs Temp Pulse Resp BP Pulse Ox O2 Del Method 02/13/25 07:03 98.4 F 58 L 16 171/79 H 96 Room Air PG Care Time/CCT Total # of Minutes Spent Total Time Spent with Patient: Total time spent is greater than 50% in coordination of care (as documented) at patient's floor/unit and/or counseling patient: Coding Level of Care Code 95519 Post Operative Follow-Up Diagnoses H/O umbilical hernia repair Z98.890; Z87.19
--- NOTE | 2025-02-13 13:07 | Hospitalist Progress Note ---
"Date of Service February 13, 2025 Assessment & Plan (1) Ileus: (2) Acute urinary retention: (3) Renal insufficiency: (4) Hypokalemia: (5) Diabetes mellitus, type 2: Plan Patient is a 69-year-old male with a past medical history including stage III CKD, [place], sudden cardiac arrest, type II DM, GERD, HTN, HLD. The hospitalist team was consulted for diabetes management after the patient was admitted to the general surgery team for an ileus after hernia repair surgery 02/07. Patient also in acute urinary retention and with creatinine of 1.7, K+ 3.3 on arrival. #Ileus Fluids, pain control, and DVT PPx per primary team continue to encouraged ambulation when possible Repeat KUB on 02/10 did not reveal acute SBO; no gross free air Patient reports BMs x 2 on 02/12, 02/13 He has now been advanced to a solid diet and continues to tolerate well DC today Discharge disposition per primary team #Recent umbilical hernia repair | abdominal cellulitis With Dr. Crawford on 02/07 No leukocytosis on day of discharge 02/12 Continue Bactrim 1 tablet BID for residual erythema/abdominal cellulitis (started on 02/09) Will plan to prescribe Bactrim 1 tablet BID through 02/15 to complete full 7-day course #Constipation (resolved) MiraLAX daily Colace twice daily #Acute urinary retention Patient noted to be in acute urinary retention on arrival and a Dubois catheter was placed in the ED Creatinine increased from 1.4 -> 1.7 (unclear baseline; he reports history of stage III CKD) Creatinine improved with Dubois placement and IVF Attempted Dubois catheter removal on 02/11, but patient exhibited difficulty to void spontaneously Dubois catheter reinserted Suspect mild AUGUST in the setting of obstructive etiology (?BPH) Continue Flomax 0.4 mg p.o. daily on discharge x 7-day Recommend maintaining Dubois catheter for the next 5 to 7 days before initiating repeat voiding trial #Type II DM A1c 6.3% on 02/09/2025 Hold dapagliflozin and glipizide On glargine 20U twice daily; will reduce to 10u BID in the setting of decreased p.o. status SSI ordered BSG ACHS Adjust regimen as needed Plan to restart home regimen on discharge #HTN Okay to restart lisinopril on discharge #Mental health Continue nortriptyline VTE ppx: SCDs, encourage ambulation where possible Prior attending attempted to call [facility] twice on 02/12 hoping to speak with [facility] and set up transitional care, but was unable to reach anyone Disposition: Safe for discharge from a medical standpoint Per General Surgery request, will send in additional antibiotics Thank you for allowing us to participate in the care of this patient. Please reach out with any questions or concerns. Admission and Anticipated Discharge Date Admission Date: February 09, 2025 Subjective Doing well, recovering adequately. No problems with oral intake. No problems or issues with eliminations. No new events or concerns per patient or nursing. Physical Exam Physical Exam: General: no acute distress; 2 correctional officers at bedside; non-toxic appearing; cooperative HEENT: MMM CV: RRR no MRG Lungs: CTAB, good air mvmt throughout ABD: Soft, NTP Skin: warm, dry without signs of tenting; no cyanosis; no rashes, bruising, lesions, or erythema noted Neuro: A&Ox3; normal mood and affect; fluent speech; sensation intact and symmetric in the LEs b/l Results & Data Results & Data Vital Signs (Past 12 Hours) Vital Signs Temp Pulse Resp BP Pulse Ox O2 Del Method 02/13/25 07:03 36.9 C 58 L 16 171/79 H 96 Room Air Laboratory Results 02/13/25 02/12/25 02/12/25 07:34 20:53 16:28 POC Glucose 82 115 H 94 PG Care Time/CCT Total # of Minutes Spent Total Time Spent with Patient: Total time spent is greater than 50% in coordination of care (as documented) at patient's floor/unit and/or counseling patient: Coding Level of Care Code 16208 SUB INP/OBS CARE 06/11MIN Diagnoses Ileus K56.7 Acute urinary retention R33.8 Renal insufficiency N28.9 Hypokalemia E87.6 Diabetes mellitus, type 2 E11.9"
--- NOTE | 2025-02-15 12:51 | Discharge Summary ---
Date of Service February 13, 2025 Admission HPI Per Admitting Provider This is a 69-year-old male who presented to the emergency department secondary to abdominal discomfort. On 02/07/2025 the patient underwent an open umbilical hernia repair by Dr. Nghia Crawford of [facility] physician of general surgery. Dr. Crawford's operative note was reviewed and the patient was noted to have a small umbilical hernia defect and mesh was not utilized in this repairhe did do a primary fascial closure. Patient was discharged back to correctional facility where he resides the day of his procedure. The patient presented to the emergency department the evening of 02/08/2025 secondary to abdominal pain and difficulty urinating. Patient notes that since his surgery he has only been able to void very small amounts with a weak urine stream. He notes that he has never had this issue before. He denies any dysuria or hematuria. Patient also reports that he was able to eat breakfast the morning of 02/08/2025 but since that time he has had persistent nausea without vomiting. He also notes that since discharge to his correctional facility he has not been able to pass gas or move his bowels since his surgery. He notes that his abdomen is somewhat distended and he has a considerable amount of pain primarily located in the periumbilical region near his hernia surgery site. He does not report any modifying factors to his pain prior to arrival and he denies any radiation. He denies any fevers, shakes, or chills. Since arrival to the hospital this evening the patient has had labs and imaging which I independently reviewed. The chest x-ray showed no evidence of pneumonia. I did not appreciate any free air under the diaphragm. A KUB was performed that showed findings consistent with a colonic ileus as well as constipation. This was followed up with a CT scan of the abdomen and pelvis. This showed that there was no significant free intraperitoneal air or intraperitoneal free fluid. There is an area of subcutaneous edema in in the area of previous umbilical hernia with no abscess or recurrence of the hernia. There is a large amount of gas and stool in the right colon. The right colon appeared dilated measuring up to approximately 8.3 cm which was concerning for constipation. There is no other inflammatory process noted in the abdomen or pelvis. Labs included CBC white blood cell count, hemoglobin, hematocrit, and platelet count were normal. Coagulation studies were normal. Chemistry profile showed sodium is 143 with a potassium of 3.3. BUN and creatinine were 32 and 1.7. Urinalysis was not indicative of infection. Since arrival to the emergency department the patient has had 2 L of intravenous fluids given. He also had some intravenous acetaminophen and was given a glycerin suppository. He does note that he passed a small amount of flatus with the glycerin suppository but has yet to move his bowels. In addition, the patient has had a Dillard catheter placed and the patient did note some slight symptomatic relief with decompression of his bladder. At the time my interview the patient was in no distress but did have considerable abdominal discomfort Principal Diagnosis h/o umbilical hernia repair Discharge Exam awake/alert, no distress Gastrointestinal (Abdomen) Inspection/Auscultation: + abdominal surgical incision (c/d/i with dermabond, some bruising noted) Percussion/Palpation: + abdomen tender (some discomfort over umbilical region) and abdomen soft Discharge Data Allergies Allergy/AdvReac Type Severity Reaction Status Date / Time nalbuphine Allergy Mild Verified 02/07/25 06:18 Penicillins Allergy Mild Verified 02/07/25 06:18 Consultations 02/09/25 00:12 Consult Hospitalist Stat Ordered Studies 02/08/25 20:33 CT abd pelvis IV con only Stat Hospital Course (1) H/O umbilical hernia repair: This is a 69y M who was admitted to the [facility] on 02/09 with complaints of abdominal pain and constipation and difficulty urinating. He is s/p an open umbilical hernia repair with Dr. Crawford on 02/07. Imaging was obtained and suspicious for findings of an ileus. The patient had a dillard placed and was made NPO with IVF. The hospitalists were on board during his hospitalization for assistance with medical management. On 02/10 the patient's dillard was removed. Unfortunately he still had issues with urinating despite starting on flomax and it was replaced. He was started on a bowel regimen. As the patient's pain improved and bowel function returned he slowly advanced diet as tolerated. Due to some redness around his incision he was started on some oral bactrim during his stay. On 02/13 the patient was deemed stable for discharge back to longterm. He left with a dillard in place (with plans to remove it there in 5-7 days), a course of bactrim to complete, and a regular diet. He was instructed to follow up in the office in 2 weeks. Total Time Total Time Spent Total Time Spent (In Minutes): 20 Discharge Plan Discharge Items Patient Disposition: Correctional Facility Reason For Visit: ILEUS Discharge Diagnosis: ileus history of umbilical hernia repair Condition on Discharge: Fair Activity: Per Instructions section Lifting: No more than 10 pounds Bathing Comment: may shower; no soaking in tubs/pools x 2 weeks Exercise/Sports: Wait until after follow-up appointment Driving/Machine Use: Resume 3 days after discharge Non-emergency contact: Primary Care Provider and Surgeon Call non-emergency contact if: you have any medication questions, your symptoms worsen, your pain is worsening, you have a fever, your temperature is above 101.5, your wound has increased redness, your wound has increased drainage and your wound pain has increased Follow-up/Referrals: Hebert Crawford DO [Surgeon] - (call to schedule follow up in the office with dr. crawford in 2 weeks) Mimi ACOSTA [Primary Care Provider] - Diet: Regular Addtl Attending Provider Instructions: SPECIAL CARE INSTRUCTIONS: * You will be discharge on Bactrim for abdominal cellulitis around your incisions (see details below) * You have skin glue over your incisions called dermabond. you may shower with this on. It will tend to dissolve and fall off within a couple weeks. Do not pick at the skin glue * You may shower, NO soaking in pools or baths for 2 weeks * No lifting greater than 10lbs. No strenuous exercise until cleared by surgeon. Light walking is accepted. * No driving while taking narcotic pain medication; wait at least 3 days * No drinking alcohol while taking narcotic pain medication * May use Ibuprofen/Tylenol over the counter for pain as tolerated. Do not exce ed 3grams of Tylenol per 24 hours * You may take Tylenol #3 if your facility provides it for pain. Otherwise you may take Tylenol or Ibuprofen. Do not exceed the daily limit of acetaminophen within a 24 hour time period. * You should take a daily stool softener such as colace or miralax provided for the longterm * Expect some swelling and bruising. * Diet- you may resume your regular diet Call your doctor if: * Temperature above 101 degrees, nausea/vomiting, fever/chills * Pain not relieved by pain medicine ordered * There is increased drainage or redness from any incision * You have any unanswered questions or concerns [phone]. FOLLOW UP VISIT: If not already scheduled, please call the office for a follow-up visit. Office Addtl D[employer] Entry Clerk Provider Instructions: You were hospitalized at [facility] due to a "postoperative ileus". This is a condition that can occur after surgery, where you have decrea sed motility in your bowels. This is not due to an obstruction or physical blockage. Rather, the signals from nerves in your bowels slow down or stop completely, and as a result you have difficulty moving waste products throughout your body. The main treatments for this include bowel rest, IV fluids, and close monitoring until symptoms begin to resolve. Over the course your hospital stay, your diet was slowly advanced to the point where he could not tolerate solid food. While there is some concern for cellulitis around your surgical incision site, your blood work does not reveal an elevated white blood cell count to indicate signs of severe infection. For these reasons, we feel that you are safe to return to a correctional facility as long as you continue on antibiotics for the next several days. Additionally, you reported difficulty with urination over the course your hospital stay. A Dillard catheter was placed which helped with urination, but when this was removed you went back into urinary retention. This may be caused by an enlarged prostate. We will plan to send you back to your correctional facility with this Dillard catheter in place. Please plan on a voiding trial ( either with your [place], or on an outpatient basis) in the next 5 to 7 days. New prescriptions: - Bactrim 1 tablet twice daily x 4 days - Tamsulosin ("Flomax") 0.4 mg daily x 7 days We recommend repeat blood-work in the next 3-4 days to re-assess your kidney function. If you develop any new or worsening symptoms, such as fever, chills, abdominal swelling/bloating/pain, inability to pass stool or gas, black/tarry stool, or bright red blood in the stool, please return to the emergency department immediately. It was a pleasure taking care of you. Please reach out with any questions or concerns. Pending Studies at Discharge: No Stand-Alone Forms: [facility] Skilled Items Patient informed of condition?: Yes Discharge Level of Care: Other Communicable Disease: No Discharge Prognosis: Stable Lines: None Urinary Catheter: Yes (Leave in for 5-7 days, then voiding trial) Medications and DC Order Prescriptions: New tamsulosin 0.4 mg Capsule 0.4 mg PO QAM Qty: 7 0RF Rx Instructions: Take one capsule daily sulfamethoxazole-trimethoprim [Bactrim DS] 800-160 mg Tablet 1 tab PO BID 4 Days Qty: 8 0RF Rx Instructions: Take one tablet by mouth twice daily x 4 additional days Continued dapagliflozin propanediol 10 mg tablet 10 mg PO DAILY labetalol 300 mg tablet 300 mg PO BID aspirin [Fide Low Dose Aspirin] 81 mg Tablet,Delayed Release (Dr/Ec) 81 mg PO DAILY rosuvastatin 40 mg Tablet 40 mg PO DAILY niacin 500 mg Tablet Extended Release 500 mg PO DAILY nortriptyline 10 mg Capsule 10 mg PO QPM Rx Instructions: crush Novolin N NPH U-100 Insulin 100 unit/mL Suspension See Rx Instructions .ROUTE .COMPLEX Rx Instructions: . hydrochlorothiazide 25 mg Tablet 12.5 mg PO DAILY insulin glargine-yfgn [Semglee(insulin glargine-yfgn)] 100 unit/mL Solution 20 unit SUBCUT BID lisinopril 20 mg Tablet 20 mg PO DAILY sennosides [senna] 8.6 mg Tablet 17.2 mg PO HS PRN (Reason: Constipation) Rx Instructions: hold for loose stools acetaminophen 500 mg Tablet 1,000 mg PO TID PRN (Reason: Pain) docusate sodium 100 mg Capsule 100 mg PO BID Rx Instructions: hold for loose stools amlodipine 5 mg Tablet 5 mg PO DAILY glipizide 5 mg Tablet 5 mg PO DAILY nitroglycerin 0.4 mg Tablet, Sublingual 0.4 mg sublingual .Q 5 MIN MDD up to 3 doses PRN (Reason: Chest Pain) Patient Comments: Take 1 tab SL every 5 min for chest pain. May repeat up to 3 doses. cholecalciferol (vitamin D3) 25 mcg (1,000 unit) Capsule 125 mcg PO DAILY Discharge Orders: Discharge Order (Routine); Ordered 02/13/25 Ordered By: Jie Hollingsworth/Other Patient Handouts: Ileus Admission Data Admit Date/Time: 02/09/25 00:11 Attending Provider: Hebert Crawford Admit Provider: Hebert Crawford Primary Care Provider: Mimi ACOSTA Other Providers: Pilo Hansen Other Interventions: Discharge Summary Assessment (RN) Last Done: 02/13/25 08:54 Coding Level of Care Code 92923 IN/OBS DISCH 30 MIN/LESS Diagnoses H/O umbilical hernia repair Z98.890; Z87.19
== END 2025-02-13 10:47 | DRG 389 ==
LOC: ED 16:31 → EDINP 02-09 00:11 → 3W 02-09 01:49
DX: N40.1 Benign prostatic hyperplasia with lower urinary tract symptoms; K21.9 Gastro-esophageal reflux disease without esophagitis; Z79.4 Long term (current) use of insulin; N18.30 Chronic kidney disease, stage 3 unspecified; I25.2 Old myocardial infarction; E11.22 Type 2 diabetes mellitus with diabetic chronic kidney disease; R33.9 Retention of urine, unspecified; N17.9 Acute kidney failure, unspecified; K56.7 Ileus, unspecified; Z88.8 Allergy status to other drugs, medicaments and biological substances; Z88.0 Allergy status to penicillin; Z79.899 Other long term (current) drug therapy; E87.6 Hypokalemia; Z79.84 Long term (current) use of oral hypoglycemic drugs; I12.9 Hypertensive chronic kidney disease with stage 1 through stage 4 chronic kidney disease, or unspecified chronic kidney disease; E78.5 Hyperlipidemia, unspecified; L03.311 Cellulitis of abdominal wall; Z87.891 Personal history of nicotine dependence; Z79.82 Long term (current) use of aspirin; K59.00 Constipation, unspecified